=== PATIENT | female | born 1955 | race Caucasian/White ===

== ENCOUNTER 2022-09-24 10:01 | Outpatient (CLI) | payer MEDICARE, MEDICAID, SELFPAY ==
--- NOTE | 2022-09-24 11:00 | NEURO_ITS ---
Impression: # Complains of weakness of right hand. # No Carpal Tunnel Syndrome or ulnar neuropathy. # Normal needle/EMG exam including proximal muscles. # Clinical correlation recommended. Nerve Conduction Studies Anti Sensory Summary Table Stim Site NR Peak (ms) P-T Amp (?V) Site1 Site2 Delta-P (ms) Dist (cm) Earnest (m/s) Right Median Anti Sensory (2-3nd Digit) Wrist 2.7 22.7 Wrist 2-3nd Digit 2.7 14.0 52 Wrist 2.8 33.9 Wrist 2-3nd Digit 2.7 14.0 52 Right Radial Anti Sensory (Base 1st Digit) Wrist 2.3 20.9 Wrist Base 1st Digit 2.3 0.0 Right Ulnar Anti Sensory (5th Digit) Wrist 2.5 43.8 Wrist 5th Digit 2.5 14.0 56 Motor Summary Table Stim Site NR Onset (ms) O-P Amp (mV) Site1 Site2 Delta-0 (ms) Dist (cm) Earnest (m/s) Right Median Motor (Abd Poll Brev) Wrist 2.6 4.1 Elbow Wrist 4.3 26.0 60 Elbow 6.9 2.7 Right Ulnar Motor (Abd Dig Minimi) Wrist 2.4 6.9 A Elbow Wrist 4.4 27.0 61 A Elbow 6.8 5.6 F Wave Studies NR F-Lat (ms) L-R F-Lat (ms) Right Median (Mrkrs) (Abd Poll Brev) 25.86 Right Ulnar (Mrkrs) (Abd Dig Min) 25.63 EMG Side Muscle Nerve Root Ins Act Fibs Amp Dur Recrt Comment Right 1stDorInt Ulnar C8-T1 Nml Nml Nml Nml Nml Right Ext Indicis Radial (Post Int) C7-8 Nml Nml Nml Nml Nml Right Ext Digitorum Radial (Post Int) C7-8 Nml Nml Nml Nml Nml Right BrachioRad Radial C5-6 Nml Nml Nml Nml Nml Right PronatorTeres Median C6-7 Nml Nml Nml Nml Nml Right Abd Poll Brev Median C8-T1 Nml Nml Nml Nml Nml MTDD
== END 2022-09-24 10:02 | disposition home or self-care (01) ==
LOC: ANHNEURO 10:04
DX: R29.898 Other symptoms and signs involving the musculoskeletal system (principal)
CPT/HCPCS: 95886; 95909

== ENCOUNTER 2023-03-25 04:48 | Inpatient (IN) | payer MEDICARE, MEDICAID, SELFPAY ==
[2023-03-25] VITALS (10 sets, daily range): BP systolic 124–167; BP diastolic 59–73; PULSE 52–85; RESP 16–23; TEMP 36.3–36.6; O2SAT 98–100; BMI 24.5
--- NOTE | ~2023-03-25 | XR_ITS ---
XR chest 1V portable DATE: 03/25/2023 08:06 INDICATION: Palpitations. Epigastric abdominal pain. Nausea and vomiting. History of emphysema. TECHNIQUE: Portable upright AP chest on 03/25/2023 at 0802 hours COMPARISON: None FINDINGS: Normal heart size. There is aortic arch calcification, mild aortic unfolding. No hilar or m ediastinal enlargement. No pulmonary infiltrate or consolidation, pleural effusion or pulmonary vascular congestion or pneumo thorax is detected. Diffuse osteopenia. Surgical clips appearing present in the right upper quadrant, likely due to cholecystectomy. Diffuse osteopenia. There appears to be some surgical hardware at the minimally included lower cervical spine. There is d egenerative spurring and mild dextroscoliosis of the thoracic spine. IMPRESSION: No active cardiopulmonary disease Aortic atherosclerosis Reviewed, dictated and finalized at location L. S OFFICE MANAGER
--- NOTE | ~2023-03-25 | CT_ITS ---
CT of the Abdomen and Pelvis: Indication: Abdominal pain Technique: 2.5 mm axial scans were obtained through the abdomen and pelvis following intravenous adm inistration of 100 cc of Omnipaque 350. Dose reduction technique was used on this scan by utilizing a utomated exposure control and iterative reconstruction technique. The dose-length product (DLP) was 4 93.20 mGy-cm. Findings: Scans through the lung bases are unremarkable. The liver, spleen, pancreas, adrenals and kidneys are within normal limits. Cholecystectomy clips are present. There are atherosclerotic calcifications of the aorta. No lymphadenopathy. No bowel obstruction or bowel wall thickening. There is no evidence to suggest acute appendicitis. Ev idence of prior bariatric surgery noted. There is a small right-sided ventral fat-containing hernia, possibly at site of prior port placement. Images through the pelvis were performed. Urinary bladder unremarkable. No adnexal mass seen. No asci adriana. Impression: Small right-sided ventral fat-containing hernia, likely at the site of prior port placement. No acute abnormality seen. Reviewed, dictated and finalized at location . 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 No acute abnormality seen.
--- NOTE | 2023-03-25 04:49 | ECG_ITS ---
Measurements Intervals [place] Rate: 67 P: 5 [place]: 150 QRS: 46 QRSD: 86 T: 58 QT: 383 QTc: 406 Interpretive Statements SINUS OR ECTOPIC ATRIAL RHYTHM BORDERLINE ECG NO PREVIOUS ECG AVAILABLE FOR COMPARISON Electronically Signed On 03-25-2023 6:20:41 MARKETING AUTOMATION ANALYST by Pankaj Connell D.O.
[2023-03-25 06:06] LABS: Basophils Percent Auto 0.2 % (0.2-1.2); Eosinophils Absolute Auto 0.2 K/mm3 (0-0.3); Eosinophils Percent Auto 2.1 % (0-4.4); Hematocrit 41.4 % (37.0-47.0); Hemoglobin 13.1 g/dL (12.0-15.0); Immature Granulocyte Absolute 0.11 K/mm3 (0.00-0.031); Immature Platelet Fraction Pct 6.3 % (0.9-11.2); Lymphocytes Absolute Auto 3.07 K/mm3 (0.9-3.2); Lymphocytes Percent Auto 29.1 % (18.3-44.2); Mean Corpuscular HGB Conc 31.6 g/dl (32-36); Mean Corpuscular Hemoglobin 30.8 pg (26-34); Mean Corpuscular Volume 97.2 fl (80-100); Monocytes Absolute Auto 0.9 K/mm3 (0.1-0.6); Monocytes Percent Auto 8.4 % (2.6-8.5); Neutrophils Absolute Auto 6.3 K/mm3 (1.3-6.7); Neutrophils Percent Auto 59.2 % (45.5-73.1); Platelet Count Result 241 k/mm3 (150-375); Red Blood Count 4.26 M/mm3 (4.2-5.4); Red Cell Distribution Width 12.2 % (11.5-14.5); White Blood Count 10.6 K/mm3 (4.5-10.0)
[2023-03-25 06:16] LABS: Alanine Aminotransferase 83 U/L (6-35); Albumin Level 3.9 g/dL (3.5-5.1); Alkaline Phosphatase 73 U/L (38-126); Anion Gap 8 mmol/L (8-16); Aspartate Amino Transferase 51 U/L (14-36); Bilirubin,Total 0.7 mg/dL (0.2-1.3); Blood Urea Nitrogen 21 mg/dL (7-17); Calcium 8.7 mg/dL (8.4-10.2); Carbon Dioxide 23 mmol/L (22-30); Chloride 107 mmol/L (98-107); Estimated CRCL calculation 49 ml/min; Estimated Glomerular Filt Rate > 60; Glucose 83 mg/dL (65-110); Lipase 174 U/L (23-300); Potassium 3.5 mmol/L (3.4-5.0); Sodium 138 mmol/L (137-145)
[2023-03-25 06:19] LABS: Appearance Urine Clear (Clear); Bacteria Urine None Seen /hpf; Bilirubin Urine Negative (Negative); Blood Urine Negative (Negative); Color Urine Yellow (Yellow); Glucose Urine UA Negative (Negative); Ketones Urine Negative (Negative); Leukocyte Esterase Ur Trace LEU/UL (Negative); Nitrate Urine Negative (Negative); Non Pathogenic Casts 0-2; Protein Urine Negative (Negative); RBC Urine 0-2 /hpf (0-2); Specific Grav Ur 1.016 (1.001-1.035); Squamous Epithelial Cell Urine None seen /hpf (Few); WBC Urine 0-5 /hpf; pH Urine 6.5 (5.0-9.0)
[2023-03-25 06:27] LABS: Add Urine Microscopic? YES
[2023-03-25 06:28] LABS: Troponin I < 0.012 ng/mL (0.000-0.034)
[2023-03-25] MEDS: MORPHINE SULFATE (*CRX) 2 MG/ML INJ IV PUSH ×3 (06:46→20:30)
[2023-03-25] MEDS: SODIUM CHLORIDE 0.9% IV 1,000 ML 999 ML IV CONT ×2 (06:47→08:01)
[2023-03-25] MEDS: ONDANSETRON INJ 4 MG/2 ML VIAL IV PUSH ×3 (06:47→15:37)
[2023-03-25 06:51] LABS: Troponin I < 0.012 ng/mL (0.000-0.034)
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
[2023-03-25] MEDS: FAMOTIDINE 20 MG/2 ML VIAL IV PUSH ×2 (08:01→20:29)
[2023-03-25 08:12] LABS: Lactic Acid Reflex 0.8 mmol/L (0.7-2.0)
--- NOTE | 2023-03-25 10:30 | ADMGEN ---
This patient, Amira Zimmer, was admitted to Medical Room 245-. Patient/family oriented to hospital policies and general routines including ID bracelet, bed and alarms, visiting hours, pain management, procedures, bathroom and other care routines, personal items, smoking policy, room service/diet, and visiting hours. Information on how to activate the Rapid Response Team has been discussed. Patient/Family are encouraged to report perceived risks to care and to ask questions if they do not understand what they are told or what they should do.
[2023-03-25] MEDS: SODIUM CHLORIDE 0.9% IV 1,000 ML 125 ML IV CONT ×2 (10:46→18:49)
--- NOTE | 2023-03-25 12:50 | WPDGICN ---
Assessment and Plan Assessment and plan (1) Intractable nausea and vomiting: Code(s): R11.2 - Nausea with vomiting, unspecified Status: Acute Assessment and Plan: she has been unable to keep down even sips of water. This reminds her of how she felt when she had an intestinal obstruction about 5 years ago. (2) Abdominal pain: Qualifiers: Abdominal location: epigastric Qualified Code(s): R10.13 - Epigastric pain Code(s): R10.9 - Unspecified abdominal pain Status: Acute Assessment and Plan: Her pain is in the epigastric area but radiates transversely to both sides and also up into the chest. She was afraid it might be cardiac at 1st. Peptic ulcer disease is a possibility. The symptom patterns is suggestive of biliary disease. Her gallbladder however is out. (3) Transaminitis: Code(s): R74.01 - Elevation of levels of liver transaminase levels Status: Acute Assessment and Plan: Though LFTs are elevated, they are lower than they were a couple of months ago. AST was 104 in January and now 51 ALT however was 43 and has gone up to 83. Bilirubin is normal. Plan IV fluids for rehydration. Schedule for EGD tomorrow. Anti nausea, antiemetics as needed. GI Consult Note Consult date/time: 03/25/23 12:50 HPI: Amira Zimmer is a 67 year old female Admitted to the emergency room because of persistent vomiting. She states that a couple days ago she developed pain in the epigastric area which would radiate up into her chest and across the abdomen along the costal margins. She was nauseated and vomiting somewhat. Beginning yesterday it became constant, and she has been unable to keep down even sips of water. She states this remind her very much of what occurred when she had intestinal obstruction due to adhesions several years ago. She has been having bowel movements although becoming constipated lately. She denies fever. She had a gastric bypass 18 years ago. It has not give her trouble to her knowledge since then. She has had a cholecystectomy as well. Review of Systems Review of Systems: All systems reviewed & are unremarkable except as noted in HPI and below PMFSH Family History Family History Father Alzheimer disease Mother High cholesterol Mother Hypertension Mother Heart attack Sibling Lung cancer Dementia Social History Social History Smoking status: Current every day smoker Tobacco type: cigarettes Additional smoking assessment comments: smoking 6 cigarettes daily after having quit in 2010 Alcohol intake: never Substance use: never Substance use type: does not use Lack of Transportation: No Lack of Food: Never True Current Housing: I Have Housing Concerned About Future Housing: No Difficulty Paying Gas/Electric Bills: No Difficulty Paying for Meds: No Currently Unemployed: No Education: High School Diploma/GED Difficulty w/ Childcare or Family Care: No Spiritual care concerns: Yes (Cheondoism) Meds Home Medications and Allergies Home Medications Medication Instructions Recorded Confirmed Type albuterol sulfate 90 mcg/actuation 1 inh inhalation Q4-6H PRN 11/09/20 03/25/23 History breath activated powder inhaler Shortness Of Breath Or Wheezing ergocalciferol (vitamin D2) 1,250 1,250 mcg PO WEEKLY 11/09/20 03/25/23 History mcg (50,000 unit) capsule ferrous sulfate 325 mg (65 mg 325 mg PO DAILY 11/09/20 03/25/23 History iron) tablet losartan 100 mg tablet 100 mg PO DAILY 11/09/20 03/25/23 History metoprolol succinate 25 mg 25 mg PO DAILY 11/09/20 03/25/23 History tablet,extended release 24 hr multivitamin-iron 9 mg-folic acid 1 tablet PO DAILY@0800 #0 tabs 01/21/23 03/25/23 Rx 400 mcg-calcium and minerals tablet (Thera M Plus (ferrous fumarate)) poly
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
[2023-03-25] MEDS: diphenhydrAMINE HCl INJ 50 MG/ML VIAL 25 MG IV PUSH (20:29)
[2023-03-26] VITALS (9 sets, daily range): BP systolic 131–151; BP diastolic 45–96; PULSE 57–79; RESP 16–27; TEMP 36.6–36.8; O2SAT 96–100
[2023-03-26] MEDS: SODIUM CHLORIDE 0.9% IV 1,000 ML 125 ML IV CONT ×3 (02:28→20:14)
[2023-03-26] MEDS: diphenhydrAMINE HCl INJ 50 MG/ML VIAL 25 MG IV PUSH ×2 (02:32→23:15)
[2023-03-26] MEDS: MORPHINE SULFATE (*CRX) 2 MG/ML INJ IV PUSH (03:44)
[2023-03-26 06:24] LABS: Basophils Percent Auto 0.1 % (0.2-1.2); Eosinophils Absolute Auto 0.2 K/mm3 (0-0.3); Eosinophils Percent Auto 1.6 % (0-4.4); Hematocrit 37.3 % (37.0-47.0); Hemoglobin 11.9 g/dL (12.0-15.0); Immature Granulocyte Absolute 0.07 K/mm3 (0.00-0.031); Immature Granulocyte Percent A 0.7 % (0-0.5); Lymphocytes Absolute Auto 2.23 K/mm3 (0.9-3.2); Lymphocytes Percent Auto 22.6 % (18.3-44.2); Mean Corpuscular HGB Conc 31.9 g/dl (32-36); Mean Corpuscular Hemoglobin 31.2 pg (26-34); Mean Corpuscular Volume 97.9 fl (80-100); Mean Platelet Volume 9.7 fl (7.4-10.4); Monocytes Absolute Auto 0.7 K/mm3 (0.1-0.6); Monocytes Percent Auto 6.8 % (2.6-8.5); Neutrophils Absolute Auto 6.7 K/mm3 (1.3-6.7); Neutrophils Percent Auto 68.2 % (45.5-73.1); Platelet Count Result 241 k/mm3 (150-375); Red Blood Count 3.81 M/mm3 (4.2-5.4); Red Cell Distribution Width 12.5 % (11.5-14.5); White Blood Count 9.9 K/mm3 (4.5-10.0)
[2023-03-26 06:32] LABS: Alanine Aminotransferase 61 U/L (6-35); Albumin Level 3.4 g/dL (3.5-5.1); Alkaline Phosphatase 71 U/L (38-126); Anion Gap 7 mmol/L (8-16); Aspartate Amino Transferase 33 U/L (14-36); Bilirubin,Total 0.7 mg/dL (0.2-1.3); Blood Urea Nitrogen 10 mg/dL (7-17); Calcium 8.5 mg/dL (8.4-10.2); Carbon Dioxide 25 mmol/L (22-30); Chloride 106 mmol/L (98-107); Estimated CRCL calculation 57 ml/min; Estimated Glomerular Filt Rate > 60; Glucose 79 mg/dL (65-110); Sodium 138 mmol/L (137-145)
--- NOTE | 2023-03-26 08:10 | PM.IMPN ---
Progress Note: A&P Assessment and Plan (1) Abdominal pain: Qualifiers: Abdominal location: upper abdomen, unspecified Qualified Code(s): R10.10 - Upper abdominal pain, unspecified Code(s): R10.9 - Unspecified abdominal pain Status: Acute Assessment and Plan: CT abdomen/pelvis: Small right-sided ventral fat-containing hernia, likely at the site of prior port placement. CXR: No active cardiopulmonary disease w/aortic arthrosclerosis. AST 51/ALT 83, decreased AST and increased ALT from previous on 01/22/23. UA WNL, trace leuks. EKG - no ischemic pattern, sinus or ectopic atrial rhythm. GI consulted, ?PUD, EGD 03/26, IVF, antiemetics (2) Intractable nausea and vomiting: Code(s): R11.2 - Nausea with vomiting, unspecified Status: Acute Assessment and Plan: antiemetics, hold home PO medications, resume once able to tolerate PO Plan Home Meds/Chronic Conditions - HTN: hydralazine 10 mg IVP for hypertension PRN due to inability to tolerate home PO medications - emphysema/COPD: continue home inhalers - hold home PO medications, resume once able to tolerate PO GI Prophylaxis: famotidine IV Q12H DVT Prophylaxis: SCDs, Lovenox post-EGD Lines: pIV Code Status: Full Code Subjective Date/time seen: 03/26/23 08:10 Interval history: 67-year-old female with past medical history of hypertension, hyperlipidemia, gastric bypass surgery among other comorbidities is presenting with nausea, vomiting abdominal pain as well as worsening constipation. No overnight events noted. In EGD. Review of Systems Review of Systems: in egd Exam Narrative: per Gi in EGD Objective Data Vital Signs Vital Signs: Vital Signs - 24 hr 03/25/23 08:48 03/25/23 09:01 03/25/23 09:31 Temperature Pulse Rate 63 59 L 57 L Respiratory Rate 21 H 22 H 18 Blood Pressure 167/72 H 146/67 H 137/67 Pulse Oximetry 100 100 100 Oxygen Delivery Fraction of Inspired Oxygen 03/25/23 10:01 03/25/23 10:40 03/25/23 13:51 Temperature Pulse Rate 60 Respiratory Rate 23 H 20 Blood Pressure 136/63 Pulse Oximetry 100 100 100 Oxygen Delivery Room Air Autopap Fraction of Inspired Oxygen 03/25/23 14:54 03/25/23 20:15 03/25/23 20:35 Temperature 97.9 F 97.4 F L Pulse Rate 58 L 52 L Respiratory Rate 16 17 Blood Pressure 148/60 H 142/59 H Pulse Oximetry 98 100 Oxygen Delivery Room Air Fraction of Inspired Oxygen 03/26/23 05:31 03/26/23 07:51 Temperature 98.0 F Pulse Rate 58 L Respiratory Rate 17 18 Blood Pressure 143/53 H Pulse Oximetry 100 100 Oxygen Delivery Room Air Fraction of Inspired Oxygen Intake/Output Intake/Output: Intake & Output 03/23/23 03/24/23 03/25/23 03/26/23 23:59 23:59 23:59 23:59 Intake Total 3000 1000 Output Total 1920 1500 Balance 1080 -500 Meds/Results Medications: Active Medications Generic Name Dose Route Start Last Admin Trade Name Freq PRN Reason Stop Dose Admin Acetaminophen 650 mg 03/25/23 15:15 Acetaminophen 325 Mg Tablet PO Q6H PRN Mild Pain (1-3) or Fever Albuterol 1 puff 03/25/23 15:26 Albuterol Sulfate (*Sp) Aerosol 1 Puff INHALATION Q4-6H PRN Shortness Of Breath Or Wheezing Diphenhydramine HCl 25 mg 03/25/23 15:15 03/26/23 02:32 Diphenhydramine Hcl Inj 50 Mg/Ml Vial IV PUSH 25 mg Q4H PRN Administration Nausea And Vomiting Famotidine 20 mg 03/25/23 21:00 03/25/23 20:29 Famotidine 20 Mg/2 Ml Vial IV PUSH 20 mg Q12HR DELMY Administration Hydralazine HCl 10 mg 03/25/23 15:22 Hydralazine Hcl 20 Mg/Ml Vial IV PUSH ONCE PRN Hypertension Sodium Chloride 1,000 mls @ 125 mls/hr 03/25/23 09:40 03/26/23 02:28 Normal Saline Iv IV CONT 125 mls/hr .Q8H DELMY Administration Morphine Sulfate 2 mg 03/25/23 15:15 03/26/23 03:44 Morphine Sulfate (*Crx) 2 Mg/Ml Inj IV PUSH 2 mg Q4H PRN Administration
[2023-03-26] MEDS: UMECLIDINIUM/VILANTEROL 62.5-25 MCG ELLIPTA 1 PUFF INHALATION (08:28)
[2023-03-26] MEDS: FAMOTIDINE 20 MG/2 ML VIAL IV PUSH (09:05)
--- NOTE | 2023-03-26 10:49 | PC.NURSE ---
To GI Lab via wheelchair. Family at bedside. Voiding without difficulty.
[2023-03-26] MEDS: LACTATED RINGERS 1,000 ML 150 ML IV CONT (11:03)
--- NOTE | 2023-03-26 11:22 | WPDANESEPPF ---
Anes - Initial Pre Proc Eval Procedure: Operation Date: 03/26/23 15:00 Proposed Procedures p Esophagogastroduodenoscopy - Dani Kothari MD Date/Time: 03/26/23 11:22 Surgeon: Hailey Rausch MD Pre Op Diagnosis: Abdominal Pain w Intractabel Nausea and Vomiting Patient Data Age: 67 Gender: F Height: 1.55 m Weight: 58.8 kg Last Vital Signs Temp 97.8 F 03/26/23 11:00 Pulse 66 03/26/23 11:00 Resp 16 03/26/23 11:00 BP 151/96 H 03/26/23 11:00 Pulse Ox 97 03/26/23 11:00 O2 Del Method Room Air 03/26/23 11:00 FiO2 21 03/25/23 13:51 Allergies Allergy/AdvReac Type Severity Reaction Status Date / Time No Known Allergies Allergy Verified 03/26/23 10:58 Home Medications Medication Instructions Recorded Confirmed Type albuterol sulfate 90 mcg/actuation 1 inh inhalation Q4-6H PRN 11/09/20 03/25/23 History breath activated powder inhaler Shortness Of Breath Or Wheezing ergocalciferol (vitamin D2) 1,250 1,250 mcg PO WEEKLY 11/09/20 03/25/23 History mcg (50,000 unit) capsule ferrous sulfate 325 mg (65 mg 325 mg PO DAILY 11/09/20 03/25/23 History iron) tablet losartan 100 mg tablet 100 mg PO DAILY 11/09/20 03/25/23 History metoprolol succinate 25 mg 25 mg PO DAILY 11/09/20 03/25/23 History tablet,extended release 24 hr multivitamin-iron 9 mg-folic acid 1 tablet PO DAILY@0800 #0 tabs 01/21/23 03/25/23 Rx 400 mcg-calcium and minerals tablet (Thera M Plus (ferrous fumarate)) polyethylene glycol 3350 17 gram 17 g PO BID PRN constipation #20 ea 01/21/23 03/25/23 Rx oral powder packet (Miralax) cyclobenzaprine 10 mg tablet 10 mg PO TID PRN Spasms 03/25/23 03/25/23 History gabapentin 300 mg capsule 600 mg PO TID 03/25/23 03/25/23 History (Neurontin) hydrocodone 5 mg-acetaminophen 325 1 tablet PO TID PRN pain 03/25/23 03/25/23 History mg tablet mirtazapine 15 mg tablet 15 mg PO HS 03/25/23 03/25/23 History simvastatin 40 mg tablet 40 mg PO DAILY 03/25/23 03/25/23 History umeclidinium 62.5 mcg-vilanterol 1 inh inhalation DAILY 03/25/23 03/25/23 History 25 mcg/actuation powdr for inhalation (Anoro Ellipta) Laboratory Tests 03/26/23 06:05 WBC 9.9 K/mm3 (4.5-10.0) RBC 3.81 L M/mm3 (4.2-5.4) Hgb 11.9 L g/dL (12.0-15.0) Hct 37.3 % (37.0-47.0) MCV 97.9 fl (80-100) MCH 31.2 pg (26-34) MCHC 31.9 L g/dl (32-36) RDW 12.5 % (11.5-14.5) Plt Count 241 k/mm3 (150-375) MPV 9.7 fl (7.4-10.4) Immature Gran % (Auto) 0.7 H % (0-0.5) Neut % (Auto) 68.2 % (45.5-73.1) Lymph % (Auto) 22.6 % (18.3-44.2) [place] % (Auto) 6.8 % (2.6-8.5) Eos % (Auto) 1.6 % (0-4.4) Baso % (Auto) 0.1 L % (0.2-1.2) Lymph # (Auto) 2.23 K/mm3 (0.9-3.2) [place] # (Auto) 0.7 H K/mm3 (0.1-0.6) Eos # (Auto) 0.2 K/mm3 (0-0.3) Baso # (Auto) 0.0 K/mm3 (0.0-0.1) Abs Immat Gran (auto) 0.07 H K/mm3 (0.00-0.031) Absolute Neuts (auto) 6.7 K/mm3 (1.3-6.7) Absolute Nucleated RBC 0.0 K/mm3 (0.0-0.012) Nucleated RBC % 0.0 % (0.0-0.2) Sodium 138 mmol/L (137-145) Potassium 4.0 mmol/L (3.4-5.0) Chloride 106 mmol/L (98-107) Carbon Dioxide 25 mmol/L (22-30) Anion Gap 7 L mmol/L (8-16) BUN 10 D mg/dL (7-17) Creatinine 0.60 L mg/dL (0.7-1.0) Estim Creat Clear Calc 57 ml/min Estimated GFR > 60 (59 - ) Glucose 79 mg/dL (65-110) Calcium 8.5 mg/dL (8.4-10.2) Total Bilirubin 0.7 mg/dL (0.2-1.3) AST 33 U/L (14-36) ALT 61 H U/L (6-35) Alkaline Phosphatase 71 U/L (38-126) Total Protein 6.0 L g/dL (6.3-8.2) Albumin 3.4 L g/dL (3.5-5.1) Patient hx anesthesia problems: none Family hx anesthesia problems: none Results Review: All pre-operative results and documents have been reviewed as part of the pre-operative evaluation. [facility] Past Medical History Medical History (Upda
[2023-03-26] MEDS: SIMETHICONE ORAL SUSPENSION 20 MG/0.3 ML 30 ML BOTTLE 0.6 ML PO (11:53)
--- NOTE | 2023-03-26 12:30 | PC.NURSE ---
Returned from GI lab via stretcher. Voiding without difficulty.
[2023-03-26] MEDS: oxyCODONE HCL (*CRX) 2.5 MG TAB IR PO ×2 (16:45→20:15)
[2023-03-26] MEDS: PANTOPRAZOLE SODIUM IV 40 MG VIAL IV PUSH (20:12)
[2023-03-27] MEDS: MORPHINE SULFATE (*CRX) 2 MG/ML INJ IV PUSH (01:39)
[2023-03-27] MEDS: SODIUM CHLORIDE 0.9% IV 1,000 ML 125 ML IV CONT (04:04)
[2023-03-27 06:00] VITALS: BP 154/62; PULSE 63; RESP 18; TEMP 36.6; O2SAT 100
[2023-03-27 06:06] LABS: Basophils Percent Auto 0.1 % (0.2-1.2); Eosinophils Absolute Auto 0.2 K/mm3 (0-0.3); Eosinophils Percent Auto 2.5 % (0-4.4); Hemoglobin 11.3 g/dL (12.0-15.0); Immature Granulocyte Absolute 0.04 K/mm3 (0.00-0.031); Immature Granulocyte Percent A 0.6 % (0-0.5); Lymphocytes Absolute Auto 1.67 K/mm3 (0.9-3.2); Lymphocytes Percent Auto 23.4 % (18.3-44.2); Mean Corpuscular HGB Conc 31.4 g/dl (32-36); Mean Corpuscular Hemoglobin 30.9 pg (26-34); Mean Corpuscular Volume 98.4 fl (80-100); Mean Platelet Volume 10.1 fl (7.4-10.4); Monocytes Absolute Auto 0.6 K/mm3 (0.1-0.6); Monocytes Percent Auto 8.7 % (2.6-8.5); Neutrophils Absolute Auto 4.6 K/mm3 (1.3-6.7); Neutrophils Percent Auto 64.7 % (45.5-73.1); Platelet Count Result 209 k/mm3 (150-375); Red Blood Count 3.66 M/mm3 (4.2-5.4); Red Cell Distribution Width 12.3 % (11.5-14.5); White Blood Count 7.1 K/mm3 (4.5-10.0)
[2023-03-27 06:19] LABS: Alanine Aminotransferase 46 U/L (6-35); Albumin Level 3.2 g/dL (3.5-5.1); Alkaline Phosphatase 66 U/L (38-126); Anion Gap 8 mmol/L (8-16); Aspartate Amino Transferase 27 U/L (14-36); Bilirubin,Total 0.6 mg/dL (0.2-1.3); Blood Urea Nitrogen 6 mg/dL (7-17); Calcium 8.4 mg/dL (8.4-10.2); Carbon Dioxide 24 mmol/L (22-30); Chloride 108 mmol/L (98-107); Estimated CRCL calculation 67 ml/min; Estimated Glomerular Filt Rate > 60; Glucose 87 mg/dL (65-110); Potassium 3.4 mmol/L (3.4-5.0); Sodium 140 mmol/L (137-145)
--- NOTE | 2023-03-27 06:55 | WPDGIPROGNO ---
Progress Note: A&P Assessment and Plan (1) Intractable nausea and vomiting: Code(s): R11.2 - Nausea with vomiting, unspecified Status: Acute Assessment and Plan: she has been unable to keep down even sips of water. This reminds her of how she felt when she had an intestinal obstruction about 5 years ago. EGD revealed ulcers. She is feeling better and wants to try regular food with the hope of going home today. (2) Abdominal pain: Qualifiers: Abdominal location: upper abdomen, unspecified Qualified Code(s): R10.10 - Upper abdominal pain, unspecified Code(s): R10.9 - Unspecified abdominal pain Status: Acute Assessment and Plan: Her pain is in the epigastric area but radiates transversely to both sides and also up into the chest. She was afraid it might be cardiac at 1st. Peptic ulcer disease is a possibility. The symptom patterns is suggestive of biliary disease. Her gallbladder however is out. EGD in fact did reveal several small ulcers. H pylori was negative. We have started her on pantoprazole when she is feeling better already. (3) Transaminitis: Code(s): R74.01 - Elevation of levels of liver transaminase levels Status: Acute Assessment and Plan: Though LFTs are elevated, they are lower than they were a couple of months ago. AST was 104 in January and now 51 ALT however was 43 and has gone up to 83. Bilirubin is normal. Plan Try regular diet. Consider discharge today, on PPI once daily for 6 weeks. Subjective Date/time seen: 03/27/23 06:55 Feeling much better. She is willing to try regular diet. If she tolerates that she could be discharged today. Exam Const: General: cooperative and ill appearing Orientation/consciousness: patient oriented x3 HENMT: Head: normal to inspection Ears: hearing grossly normal bilaterally Mouth: Yes Normal oral and palatal mucosa present Eyes: General: appearance normal, both eyes and all related structures Neck: Neck: normal visual inspection Chest: Chest palpation & inspection: normal inspection of the chest Resp: Effort & Inspection: normal respiratory effort Auscultation: clear to auscultation bilaterally Cardio: Rate: regular rate Rhythm: regular rhythm GI: Inspection: normal to inspection Auscultation: normal bowel sounds Skin: General skin exam: normal color and no jaundice Neuro: General: patient oriented x3 Speech: normal speech Objective Data Vital Signs Vital Signs: Vital Signs - 24 hr 03/26/23 07:51 03/26/23 11:00 03/26/23 12:00 Temperature 36.6 C Pulse Rate 66 74 Respiratory Rate 18 16 20 Blood Pressure 151/96 H 151/62 H Pulse Oximetry 100 97 100 Oxygen Delivery Room Air Room Air Room Air 03/26/23 12:10 03/26/23 12:20 03/26/23 12:45 Temperature 36.6 C Pulse Rate 65 60 60 Respiratory Rate 25 H 27 H 16 Blood Pressure 146/57 H 142/77 H 141/50 H Pulse Oximetry 99 100 98 Oxygen Delivery Room Air Room Air 03/26/23 14:00 03/26/23 20:04 03/26/23 20:30 Temperature 36.8 C 36.6 C Pulse Rate 79 57 L Respiratory Rate 16 18 Blood Pressure 131/53 L 147/45 H Pulse Oximetry 100 96 Oxygen Delivery Room Air 03/27/23 06:00 Temperature 36.6 C Pulse Rate 63 Respiratory Rate 18 Blood Pressure 154/62 H Pulse Oximetry 100 Oxygen Delivery Intake/Output Intake/Output: Intake & Output 03/24/23 03/25/23 03/26/23 03/27/23 23:59 23:59 23:59 23:59 Intake Total 3000 4570 1000 Output Total 1920 2900 550 Balance 1080 1670 450 Meds/Results Medications: Active Medications Generic Name Dose Route Start Last Admin Trade Name Freq PRN Reason Stop Dose Admin Acetaminophen 650 mg 03/25/23 15:15 Acetaminophen 325 Mg Tablet PO Q6H PRN Mild Pain (1-3) or Fever Albuterol 1 puff 03/25/23 15:26 Albuterol Sulfate (*Sp) Aerosol 1 Puff INHALATION Q4-6H PRN Shortness Of Breath Or Wheezing Diphenhydramine HCl
[2023-03-27 07:10] VITALS: PULSE 76; RESP 18; O2SAT 97
[2023-03-27 08:03] VITALS: RESP 18; O2SAT 97
[2023-03-27] MEDS: PANTOPRAZOLE SODIUM IV 40 MG VIAL IV PUSH (08:10)
--- NOTE | 2023-03-27 11:09 | P.PNAN_ITS ---
Anes - Prog Note Post-Op Date/Time: 03/27/23 11:09 Cardiovascular status: normal Respiratory status: normal Airway patency: baseline Mental status: baseline Post-Op hydration status: normal Vital Signs: Last Vital Signs Temp 36.6 C 03/27/23 06:00 Pulse 76 03/27/23 07:10 Resp 18 03/27/23 08:03 BP 154/62 H 03/27/23 06:00 Pulse Ox 97 03/27/23 08:03 O2 Del Method Room Air 03/27/23 08:03 FiO2 21 03/25/23 13:51 Pain Score (VAS): 05/21 I/O: Intake & Output 03/26/23 03/27/23 03/27/23 23:59 07:59 15:59 Intake Total 2230 1000 120 Output Total 1400 550 Balance 830 450 120 Laboratory Tests 03/27/23 05:55 03/27/23 05:55 03/27/23 05:55 WBC 7.1 RBC 3.66 L Hgb 11.3 L Hct 36.0 L MCV 98.4 MCH 30.9 MCHC 31.4 L RDW 12.3 Plt Count 209 MPV 10.1 Immature Gran % (Auto) 0.6 H Neut % (Auto) 64.7 Lymph % (Auto) 23.4 [place] % (Auto) 8.7 H Eos % (Auto) 2.5 Baso % (Auto) 0.1 L Lymph # (Auto) 1.67 [place] # (Auto) 0.6 Eos # (Auto) 0.2 Baso # (Auto) 0.0 Abs Immat Gran (auto) 0.04 H Absolute Neuts (auto) 4.6 Absolute Nucleated RBC 0.0 Nucleated RBC % 0.0 Sodium 140 Potassium 3.4 Chloride 108 H Carbon Dioxide 24 Anion Gap 8 BUN 6 L Creatinine 0.50 L Estim Creat Clear Calc 67 Estimated GFR > 60 Glucose 87 Calcium 8.4 Total Bilirubin 0.6 AST 27 ALT 46 H Alkaline Phosphatase 66 Total Protein 5.0 L Albumin 3.2 L Post-procedural complaints: none Patient Feedback: Patient satisfied with anesthetic care.
--- NOTE | 2023-03-27 13:16 | PM.DS ---
DS: Admitting Diagnosis Discharge Date 03/27/23 Admitting Diagnosis abdominal pain DS: Discharge Diagnosis Discharge Diagnosis (1) Abdominal pain: Qualifiers: Abdominal location: upper abdomen, unspecified Qualified Code(s): R10.10 - Upper abdominal pain, unspecified Code(s): R10.9 - Unspecified abdominal pain Status: Acute Assessment and Plan: CT abdomen/pelvis: Small right-sided ventral fat-containing hernia, likely at the site of prior port placement. CXR: No active cardiopulmonary disease w/aortic arthrosclerosis. AST 51/ALT 83, decreased AST and increased ALT from previous on 01/22/23. UA WNL, trace leuks. EKG - no ischemic pattern, sinus or ectopic atrial rhythm. GI consulted, ?PUD, EGD 03/26, IVF, antiemetics (2) Intractable nausea and vomiting: Code(s): R11.2 - Nausea with vomiting, unspecified Status: Acute Assessment and Plan: antiemetics, hold home PO medications, resume once able to tolerate PO Plan Home Meds/Chronic Conditions - HTN: hydralazine 10 mg IVP for hypertension PRN due to inability to tolerate home PO medications - emphysema/COPD: continue home inhalers - hold home PO medications, resume once able to tolerate PO GI Prophylaxis: famotidine IV Q12H DVT Prophylaxis: SCDs, Lovenox post-EGD Lines: pIV Code Status: Full Code DS: Summary Hospital Course Hospital Course: 67 y/o F presents here with abdominal pain, N/V, and acute on chronic constipation with PMH of HTN, HLD, DJD, HARRIS, with extensive GI/spinal surgery history including a gastric bypass. GI was consulted and recommended EGD. EGD showed several ulcers, biopsies were taken and are pending. Recommended to take a PPI twice daily and avoid aspirin/NSAIDs. Please see above and med rec for details. All symptoms resolved patient was discharged in stable condition with close outpatient follow-up. Time Spent with Patient Time attestation: Total time spent providing and/or coordinating discharge services: DS: Data Data Completed and Pending Labs on day of discharge: Labs from last 24 hours 03/27/23 05:55 WBC 7.1 RBC 3.66 L Hgb 11.3 L Hct 36.0 L MCV 98.4 MCH 30.9 MCHC 31.4 L RDW 12.3 Plt Count 209 MPV 10.1 Immature Gran % (Auto) 0.6 H Neut % (Auto) 64.7 Lymph % (Auto) 23.4 [place] % (Auto) 8.7 H Eos % (Auto) 2.5 Baso % (Auto) 0.1 L Lymph # (Auto) 1.67 [place] # (Auto) 0.6 Eos # (Auto) 0.2 Baso # (Auto) 0.0 Abs Immat Gran (auto) 0.04 H Absolute Neuts (auto) 4.6 Absolute Nucleated RBC 0.0 Nucleated RBC % 0.0 Sodium 140 Potassium 3.4 Chloride 108 H Carbon Dioxide 24 Anion Gap 8 BUN 6 L Creatinine 0.50 L Estim Creat Clear Calc 67 Estimated GFR > 60 Glucose 87 Calcium 8.4 Total Bilirubin 0.6 AST 27 ALT 46 H Alkaline Phosphatase 66 Total Protein 5.0 L Albumin 3.2 L Discharge Plan Discharge Attending physician on discharge: Zabrina Hall Consulting providers: Dani Kothari Discharging Clinician: Zabrina Hall Patient Disposition: Home, Self-Care Activity: as tolerated Diet: as tolerated Discharge Instructions: Avoid aspirin and buprofen/motrin Patient Instructions: Antibiotic Form, How to Stop Smoking (GEN) Stand Alone Forms: General Discharge Information Follow-up/Referrals: Dani Kothari MD [Physician] - Antonio,Jenny Benavides MD [Primary Care Provider] - Discharge Medications: New pantoprazole [Protonix] 40 mg tablet,delayed release (DR/EC) 40 mg PO BID 30 Days Qty: 60 0RF Continued albuterol sulfate 90 mcg/actuation aerosol powdr breath activated 1 inh inhalation Q4-6H PRN (Reason: Shortness Of Breath Or Wheezing) ergocalciferol (vitamin D2) 1,250 mcg (50,000 unit) capsule 1,250 mcg PO WEEKLY Rx Instructions: weekly on Friday ferrous sulfate 325 mg (65 mg iron) tablet 325 mg PO DAILY losartan 100 mg tablet 100 mg PO DAILY
== END 2023-03-27 13:19 | disposition home or self-care (01) | DRG 395 ==
LOC: ANHED 09:38 → ANH2MED 10:28
PROVIDERS: Emergency Medicine; Internal Medicine Gastroenterology; Student in an Organized Health Care Education/Training Program; Admitting Provider Family Medicine; Emergency Provider Student in an Organized Health Care Education/Training Program; PCP Internal Medicine Gastroenterology; Visit Provider Student in an Organized Health Care Education/Training Program
PROC: 0DJ08ZZ Inspection of Upper Intestinal Tract, Via Natural or Artificial Opening Endoscopic (ICD-10-PCS; CPT 43235; principal; 2023-03-26 15:00)
DX: K43.9 Ventral hernia without obstruction or gangrene (principal); J43.9 Emphysema, unspecified; R10.9 Unspecified abdominal pain; K21.9 Gastro-esophageal reflux disease without esophagitis; E78.5 Hyperlipidemia, unspecified; F17.210 Nicotine dependence, cigarettes, uncomplicated; G62.9 Polyneuropathy, unspecified; I10 Essential (primary) hypertension; K59.09 Other constipation; Z98.1 Arthrodesis status; Z98.84 Bariatric surgery status; Z90.710 Acquired absence of both cervix and uterus
CPT/HCPCS: 36415; 71045; 74177; 80053; 81001; 83605; 83690; 84484; 85025; 85055; 87081; 93005; 94640; 96361; 96374; 96375; 96376; 99285; A9270; C9113; G0378; J1200; J2270; J2405; J2704; J7030; J7120; Q9967

== ENCOUNTER 2023-07-01 01:06 | Day surgery (SDC) | payer MEDICARE, MEDICAID, SELFPAY ==
[2023-06-03 15:16] VITALS: BMI 24.7
--- NOTE | 2023-06-27 11:33 | SUR.PREOP ---
Patient called regarding upcoming procedure. Voicemail left regarding appointment times.
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
[2023-07-01 08:46] VITALS: BP 127/59; PULSE 66; TEMP 36.4; O2SAT 100
[2023-07-01] MEDS: LACTATED RINGERS 1,000 ML 150 ML IV CONT (09:01)
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
[2023-07-01] MEDS: BENZOCAINE (*SP) 60 ML SPRAY CAN (HURRICAINE) 1 SPRAY MUCOUS MEM (10:07)
[2023-07-01 10:19] VITALS: BP 72/35; PULSE 61; RESP 16; O2SAT 100
[2023-07-01 10:29] VITALS: BP 82/37; PULSE 69; RESP 21; O2SAT 100
[2023-07-01 10:36] VITALS: BP 84/40; PULSE 69; RESP 25; O2SAT 100
[2023-07-01 10:46] VITALS: BP 111/54; PULSE 61; RESP 21; O2SAT 100
== END 2023-07-01 10:54 | disposition home or self-care (01) ==
PROVIDERS: PCP Internal Medicine Gastroenterology; Visit Provider Internal Medicine Gastroenterology
PROC: 0DJ08ZZ Inspection of Upper Intestinal Tract, Via Natural or Artificial Opening Endoscopic (ICD-10-PCS; CPT 43235; principal; 2023-07-01 10:00)
DX: K27.9 Peptic ulcer, site unspecified, unspecified as acute or chronic, without hemorrhage or perforation (principal); K22.2 Esophageal obstruction; K21.9 Gastro-esophageal reflux disease without esophagitis; E78.5 Hyperlipidemia, unspecified; I10 Essential (primary) hypertension
CPT/HCPCS: 43249; C1726; J2704; J7120

== ENCOUNTER 2025-01-05 14:19 | Outpatient (CLI) | payer MEDICARE, SELFPAY ==
--- OUTSIDE RECORDS SUMMARY | 2007-11-09 11:12 | XMS_ITS | Continuity of Care Document ---
Author Organization [facility] Address [address] [place] [address] [place] [address] Phone Care Team Providers Care Warehousing Technician Name Role Phone Tulio Horton Unavailable Unavailable Procedures Procedure Date Visual Field Examination-Professional Ju Visual Field Examination-Technical Eye Exam, New Patient Optic Nerve Head Eval Advance Directives Directive Yes / No Effective Date File Name No Information Encounters Encounter Description Practice Location Reason(s) For Visit Diagnoses Date Provider Providers Copied on Encounter [facility], [address] [place] [address] [address], [place], [place], [id number], tel:[phone] SEC [facility] No Information 0200 8 Eugeneishnasrosalie Tulio. [address] [place] [address], [facility], [place]. tel:[phone] Referring Provider: Tulio strickland, [address] [place] [address], [place], [place], [facility]. tel:[phone] [facility], [address] [place] [address] [address], [place], [place], [id number], tel:[phone] [facility] No Information 3200 8 Krishnasamy Tulio. [address] [place] [address], [facility], [place]. tel:[phone] Referring Provider: Tulio strickland, [address] [place] [address], [facility]. tel:[phone] [facility], [address], [place], [place], [id number], [place] tel:[phone] [facility] [place] No Information 9200 8 Clifford Antunez. [address] [facility] [place] [address], [place], [address], [place]. tel:[phone] Family History Family Member Type Diagnosis Age At Onset No Information Payers Payer name Insurance type Covered green party ID Authoriza tion(s) Medicare [facility] [id number] Medicaid [facility] [id number] Social History Type Description Quantity Date Captured [...]
--- OUTSIDE RECORDS SUMMARY | 2024-12-15 06:42 | XMS_ITS | Continuity of Care Document ---
Author Organization [facility] Address [address] [facility] [facility] [place] [address] Phone Care Team Providers Care Enterprise Application Analyst Name Role Phone Napoleon Wick MD Unavailable Unavailable Allergies, Adverse Reactions, Alerts Substance Reaction Status Criticality No Known Allergies Active No Inform ation Medications Medication Instructions Dosage Effective Dates (start - stop) Status Comments Protonix 40 mg tablet,delayed release take 1 tablet by oral route every day 40 MG - Active Neurontin 300 mg capsule take 2 capsule by oral route 3 times every day 600 MG - Active metoprolol succinate ER 50 mg tablet,extended release 24 hr take 1 tablet by oral route every day 50 MG - Active Zocor 40 mg tablet take 1 tablet by oral route every day in the evening 40 MG - Active hydrocodone 10 mg-acetaminophen 325 mg tablet take 1 by Oral route 3 times every day as needed 1 - Active PRN for pain, avoid driving or operate machines losartan 100 mg tablet take 1 tablet by oral route every day 100 MG - Active Procedures Procedure Date PREV VISIT, , & OVER OFFICE/OUTPATIENT VISIT, NEW OFFICE/OUTPATIENT VISIT, NEW Advance Directives Directive Yes / No Effective Date File Name No Information Encounters Encounter Description Practice Location Reason(s) For Visit Diagnoses Date Provider Providers Copied on Encounter PREV VISIT, , 65 & OVER [facility], [address] [facility] [facility] [place], [place], [id number], [place] tel:[phone] [facility] Medicine physical (chief complaint) Encounter for general adult medical exam w abnormal findingsEssential (primary) hypertensionMixed hyperlipidemiaGERD w/o esophagitisChronic pain syndromeIron deficiencyAbnormal weight loss 5 Delano Bender. [address], [facility] [address], [place], [place], [id number] , . tel:[phone] Referring Provider: Staci Yousif [facility], [place], [place], [id number]. tel:[phone] OFFICE/OUTPA TIENT VISIT, [facility], [address], [place], [place], [id number], tel:[phone] [facility] HLP (chief complaint) anxiety (chief complaint) back pain (chief complaint) Dietary surveillance and counselingLumbagoOt her and unspecified hyperlipidemiaHyper tension, UnspecifiedInsomnia , Other 3 Delano Bender. [address], [facility] [address], [place], [place], [id number] , . tel:[phone] Referring Provider: Staci Yousif [address] [facility] [address], [place], [place], [id number]. tel:[phone] Family History Family Member Type Diagnosis Age At Onset Brother Problem of CAD 53, DM Sister Problem dementia Mother Problem of 79 CAD Father Problem of dementia 79 Brother Problem of alzheimer and lung C A 83 Payers Payer name Insurance type Covered democrat ID Authorcodya raeann(s) [facility] [id number] Social History Type Description Quantity Date Captured Comments Alcohol Use Details No Caffeine Use Details Unknown Tobacco Use Status Smoking Status Heavy tobacco smoker Smoking Tobacco Use Details Cigarette: Age Started: 13, Years Used 54 Cigarette: 0.5 Packs per day, Pack Year: 28 Sex Female Vital Signs Date / Time: Height Weight BMI Pulse Rate Blood Pressure Temperature Respiratory Rate Body Surface Area Head Circumference BMI percentile Pulse Ox Inhaled Ox 12:14 PM 61.00 in 111.80 lbs 21.1 2 kg/m eter (2) 63 /min 120/80 mm[Hg] 97.3 F 16 /min Chief Complaint And Reason For Visit From encounter dated '12/15/2024 11:42'. physical (chief complaint). Description: Pt needs annual physical. Pt has HLP >Pt takes zocor Pt denies any myalgia. Pt has chronic GERD Pt takes protonix and doing ok. Pt has palpitation with negative cardiac work up. Pt is on metoprolol and losartan. Pt has chronic back and neck pain withneuropathy Pt is on neurontin and norco .pt needs to establish care. her previous MD retired. pt als o has history of low b12 and low iron. Pt has lost good amount of weight since last seen 12 years ago Pt states that she has been working on diet and exercise for weight loss. Pt denies any active complaints Plan Of Treatment Date Type Action Status Goal Tobacco cessation counseling completed Referral Ordered: MAMMOGRAM, SCREENING ordered Referral Ordered: DXA BONE DENSITY, AXIAL ordered Referral Ordered: CT THORAX W/O DYE ordered Appointment Amira Zimmer BOOKED History Of Present Illness Encounter Date Complaint History Of Prese nt Illness physical Pt needs annual physical. Pt has HLP >Pt takes zocor Pt denies any myalgia. Pt has chronic GERD Pt takes protonix and doing ok. Pt has palpitation with negative cardiac work up. Pt is on metoprolol and losartan. Pt has chronic back and neck pain with neuropathy Pt is on neurontin and norco .pt needs to establish care. her previous MD retired. pt also has history of low b12 and low iron. Pt has lost good amount of weight since last seen 12 years ago Pt states that she has been working on diet and exercise for weight loss. Pt denies any active complaints Instructions Date Instruction Additional Infor mation Dietary counseling Related to Di etary surveillance counseling Decrease caloric intake Related to Dietary surveillance counseling Assessments Type Assessment Date assessment Encounter for general adult medi rekha exam w abnormal findings assessment Essential (primary) hypertension assessment Mixed hyperlipidemia assessment GERD w/o esophagitis assessment Chronic pain syndrome assessment Iron deficiency assessment Abnormal weight loss Mental Status Date Cognitive Assessment Orientation - [place] ed to time, place, person, situation.
--- NOTE | ~2025-01-05 | CT_ITS ---
EXAMINATION: CT lung screening DATE: 01/05/2025 14:51 INDICATION: Nicotine dependence TECHNIQUE: Computed tomography (CT) of the chest was performed without intravenous contrast. The dose-length product was 53.32 mGy-cm. Automated exposure control and iterative reconstruction technique were employed. COMPARISON: Chest x-ray dated 03/25/2023 FINDINGS: Heart size normal. No thoracic lymphadenopathy. No significant pleural or pericardial effusion. Status post cholecystectomy. There are calcified granulomas of the liver and spleen. There are changes of gastric bypass. There are calcified granulomas of the mediastinum and lungs, consistent with chronic granulomatous disease. There are a few small bilateral pulmonary nodules measuring 2 mm or less, likely benign. No endobronchial lesions. No pneumothorax. No significant pleural or pericardial effusion. IMPRESSION: 1. Lung-RADS category 2: Benign appearance or behavior. Continue annual screening with noncontrast low-dose chest CT in 12 months. Reviewed, dictated and finalized at location O. IMPRESSION: 1. Lung-RADS category 2: Benign appearance or behavior. Continue annual screeni ng with noncontrast low-dose chest CT in 12 months.
--- OUTSIDE RECORDS SUMMARY | 2025-01-05 14:33 | XMS_ITS | Clinical Summary ---
Author Organization [facility] Address [address] [place] [address] Care Team Providers Care Tattoo Designer Name Role Phone Jenny Alvarez MD Primary Care Provider Allergies No known active allergies Medications acetaminophen (TYLENOL) 500 mg tabletIndicati ons:Pain Take 1-2 tablets (500-1,000 mg total) by mouth every 6 (six) hours as needed for pain (1 tablet for mild to moderate pain. 2 tablets for severe pain) 30 tablet 03/11/20 22 Active losartan (COZAAR) 100 mg tablet Take 1 tablet (100 mg total) by mouth daily Active FeroSuL 325 mg (65 mg iron) tablet Take 1 tablet (325 mg total) by mouth 2 (two) times a day Active simvastatin (ZOCOR) 40 mg tablet Take 1 tablet (40 mg total) by mouth nightly Active gabapentin (NEURONTIN) 300 mg capsule Take 2 capsules (600 mg total) by mouth 3 (three) times a day Active HYDROcodone-ac etaminophen (NORCO) 10-325 mg per tablet Take 1 tablet by mouth every 4 (four) hours as needed Active mirtazapine (REMERON) 7.5 mg tablet mirtazapine 7.5 mg tablet TAKE 1 TABLET BY MOUTH EVERY DAY AT BEDTIME Active cyanocobalamin (Vitamin B-12) 1,000 mcg tablet Take 1 tablet (1,000 mcg total) by mouth 2 (two) times a day Active ergocalciferol , vitamin D2, 50 mcg (2,000 unit) tablet Take 50,000 Units by mouth once a week 11/17/19 21 Active Coreg 6.25 mg tablet Take 1 tablet (6.25 mg total) by mouth 2 (two) times a day with meals 05/26/19 25 Active rOPINIRole (REQUIP) 0.25 mg tablet TAKE 2 TABLETS PO EVERY NIGHT AT BEDTIME IF PAIN NOT CONTROLLED 60 tablet 5 12/17/19 25 Active rOPINIRole (REQUIP) 0.25 mg tablet Take one tablet one hour before bedtime for one week, then 2 tablets before bedtime if pain is not controlled. 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 Gender Identity Not on file Sexual Orientation Not on file Obstetrics History Last Filed Vital Signs Vital Sign Reading Time Taken Comments Blood Pressure 151/74 08/05/2024 10:48 AM CDT Pulse 61 08/05/2024 10:48 AM CDT Temperature 36.4 C (97.5 F) 03/11/2022 10:18 AM CDT Respiratory Rate 18 03/11/2022 10:18 AM CDT Oxygen Saturation 99% 08/05/2024 10:48 AM CDT Inhaled Oxygen Concentration - - Weight 52.6 kg (116 lb) 08/05/2024 10:48 AM CDT Height 157.5 cm (5' 2) 08/05/2024 10:48 AM CDT Body Mass Index 21.22 08/05/2024 10:48 AM CDT Plan of Treatment Health Maintenance Due Date Last Done Comments Breast Cancer Screening-Mammogram 1955 Colon Cancer Screening-Colonoscopy 1955 Depression Screening 1955 Fall Risk Assessment 1955 Hepatitis C Screening 1955 Osteoporosis Screening-Bone Density Scan 1955 Hepatitis B Screening 09/03/1971 Zoster Vaccine (1 of 2) 09/03/2003 Well Visit 65+ 2018 Covid-19 Vaccine (5 - 2023-2 5 season) 2024 01/04/2022, 04/23/2021, 08/07/2020, Additional history exists Influenza Vaccine (#1) 2025 , 03/26/2021, 03/28/2020, Additional history exists DTaP/Tdap/Td Vaccine (2 - Td or Tdap) 08/01/2031 07/31/2021 Pneumococcal vaccine 65+ Completed 022, 03/28/2020, 02/24/2015 Insurance MEDICARE [facility] MEDICARE IDPA IDPA Care Teams Tattoo Designer Relationship Specialty Start Date End Date Jenny Alvarez MD [address] [place] [id number] PCP - General Gastroenterology 04/30/24
--- OUTSIDE RECORDS SUMMARY | 2025-01-05 14:33 | XMS_ITS | Encounter Summary ---
Author Organization [employer] Address [address] [place] [address] Care Team Providers Care Can Vacuum Tester Name Role Phone Unavailable Primary Care Provider Unavailabl e Encounter Details Date Type Department Care Team (Late st Contact Info) Description 04/27/2007 Outpatient Historical HIS INPATIENT IN BED Inderjit Us MD [address] [place] [address] Hernia Social History Tobacco Use Types Packs/Day Years Used Date Smoking Tobacco: Never Assessed Comments Unknown Sex and Gender Information Value Date Recorded Sex Assigned at Not on file Legal Sex Female 5:29 AM CARD PROCESSING CLERK Gender Identity Not on file Sexual Orientation Not on file documented as of this encounter Plan of Treatment Not on file documented as of this encounter Procedures Procedure Name Priority Date/Time Associated Diagnosis Comments CBC WITH DIFFERENTIAL Routine 05/03/2007 5:30 AM CARD PROCESSING CLERK CBC WITH DIFFERENTIAL Routine 05/03/2007 5:30 AM CARD PROCESSING CLERK CBC WITH DIFFERENTIAL Routine 05/03/2007 5:30 AM CARD PROCESSING CLERK CBC WITH DIFFERENTIAL Routine 05/02/2007 7:40 AM CARD PROCESSING CLERK CBC WITH DIFFERENTIAL Routine 05/02/2007 7:40 AM CARD PROCESSING CLERK CBC WITH DIFFERENTIAL Routine 05/02/2007 5:15 AM CARD PROCESSING CLERK CBC WITH DIFFERENTIAL Routine 05/02/2007 5:15 AM CARD PROCESSING CLERK CBC WITH DIFFERENTIAL Routine 05/01/2007 6:30 AM CARD PROCESSING CLERK CBC WITH DIFFERENTIAL Routine 05/01/2007 6:30 AM CARD PROCESSING CLERK BASIC METABOLIC PANEL Routine 05/01/2007 6:30 AM CARD PROCESSING CLERK CBC WITH DIFFERENTIAL Routine 04/27/2007 12:54 PM CARD PROCESSING CLERK CBC WITH DIFFERENTIAL Routine 04/27/2007 12:54 PM CARD PROCESSING CLERK BASIC METABOLIC PANEL Routine 04/27/2007 12:54 PM CARD PROCESSING CLERK documented in this encounter Results * (ABNORMAL) CBC WITH DIFFERENTIAL (05/03/2007 5:30 AM CARD PROCESSING CLERK) Pathologist [facility] NEUTROPHIL ABSOLUTE 3.62 1.90 - 7.00 K/uL INTERFACE SYSTEM LYMPHOCYTE ABSOLUTE 1.62 0.70 - 4.50 K/uL INTERFACE SYSTEM MONOCYTE ABSOLUTE 0.05(L) 0.10 - 1.30 K/uL INTERFACE SYSTEM EOSINOPHIL ABSOLUTE 0.11 0.00 - 0.70 K/uL INTERFACE SYSTEM BASOPHILS ABSOLUTE 0.00 0.00 - 0.20 K/uL INTERFACE SYSTEM NEUTROPHILS, SEG 66 45 - 70 % INT ERFACE SYSTEM BANDS 1 0 - 5 % INTERFACE SYSTEM LYMPHOCYTES 30 16 - 45 % INTERFAC E SYSTEM MONOCYTES 1(L) 3 - 13 % INTERFACE SYSTEM EOSINOPHILS 2 0 - 7 % INTERFAC E SYSTEM BASOPHILS 0 0 - 2 % INTERFACE SYSTEM PLATELET EST. Normal Normal INTERF FRANCISCO J SYSTEM RBC MORPHOLOGY Normal Normal INTER FACE SYSTEM 05/03/2007 5:30 AM CARD PROCESSING CLERK Matty Hill MD HEMATOLOGY ORDERABLES Edit ed Performing Organization Address [facility] Phone Number INTERFACE SYSTEM Refer to clinic/hospital department * CBC WITH DIFFERENTIAL (05/03/2007 5:30 AM CARD PROCESSING CLERK) Pathologist [facility] NRBC 0 <=0 /100 WBC INTERFACE SYSTEM 05/03/2007 5:30 AM CARD PROCESSING CLERK Matty Hill MD HEMATOLOGY ORDERABLES Edit ed Performing Organization Address [facility] de Phone Number INTERFACE SYSTEM Refer to clinic/hospital department * (ABNORMAL) CBC WITH DIFFERENTIAL (05/03/2007 5:30 AM CARD PROCESSING CLERK) WBC 5.4 4.0 - 9.8 K/uL INTERFACE SYSTEM RBC 3.48(L) 3.90 - 4.90 M/uL INTERFACE SYSTEM HEMOGLOBIN 10.4(L) 11.8 - 14.8 g/dL INTERFACE SYSTEM HEMATOCRIT 31.8(L) 35.5 - 44.0 % INTERFACE SYSTEM MCV 91.4 82.0 - 99.0 fL INTERFACE SYSTEM MCH 29.9 27.2 - 32.6 pg INTERFACE SYSTEM MCHC 32.7 31.5 - 35.5 % INTERFACE SYSTEM RDW 13.5 11.5 - 14.5 % INTERFACE SYSTEM RDW-STDEV 44.5 37.1 - 48.7 fL INTERFACE SYSTEM PLATELETS 172 140 - 350 K/uL INTERFACE SYSTEM MPV 11.3 9.3 - 12.4 fL INTERFACE SYSTEM 05/03/2007 5:30 AM CARD PROCESSING CLERK Matty Hill MD HEMATOLOGY ORDERABLES Edit ed Performing Organization Address [facility] Phone Number INTERFACE SYSTEM Refer to clinic/hospital department * (ABNORMAL) CBC WITH DIFFERENTIAL (05/02/2007 7:40 AM CARD PROCESSING CLERK) NEUTROPHILS 73(H) 45 - 70 % INTERFAC E SYSTEM LYMPHOCYTES 19 16 - 45 % INTERFAC E SYSTEM MONOCYTES 5 3 - 13 % INTERFACE SYSTEM EOSINOPHILS 3 0 - 7 % INTERFAC E SYSTEM BASOPHILS 0 0 - 2 % INTERFACE SYSTEM NEUTROPHIL ABSOLUTE 4.30 1.90 - 7.00 K/uL INTERFACE SYSTEM LYMPHOCYTE ABSOLUTE 1.11 0.70 - 4.50 K/uL INTERFACE SYSTEM MONOCYTE ABSOLUTE 0.32 0.10 - 1.30 K/uL INTERFACE SYSTEM EOSINOPHIL ABSOLUTE 0.16 0.00 - 0.70 K/uL INTERFACE SYSTEM BASOPHILS ABSOLUTE 0.00 0.00 - 0.20 K/uL INTERFACE SYSTEM 05/02/2007 7:40 AM CARD PROCESSING CLERK Matty Hill MD HEMATOLOGY ORDERABLES Edit ed Performing Organization Address [facility] Phone Number INTERFACE SYSTEM Refer to clinic/hospital department * (ABNORMAL) CBC WITH DIFFERENTIAL (05/02/2007 7:40 AM CARD PROCESSING CLERK) WBC 5.9 4.0 - 9.8 K/uL INTERFACE SYSTEM RBC 2.65(L) 3.90 - 4.90 M/uL INTERFACE SYSTEM HEMOGLOBIN 8.1(L) 11.8 - 14.8 g/dL INTERFACE SYSTEM HEMATOCRIT 24.1(L) 35.5 - 44.0 % INTERFACE SYSTEM MCV 90.9 82.0 - 99.0 fL INTERFACE SYSTEM MCH 30.6 27.2 - 32.6 pg INTERFACE SYSTEM MCHC 33.6 31.5 - 35.5 % INTERFACE SYSTEM RDW 12.8 11.5 - 14.5 % INTERFACE SYSTEM RDW-STDEV 42.3 37.1 - 48.7 fL INTERFACE SYSTEM PLATELETS 171 140 - 350 K/uL INTERFACE SYSTEM MPV 10.7 9.3 - 12.4 fL INTERFACE SYSTEM 05/02/2007 7:40 AM CARD PROCESSING CLERK Matty Hill MD HEMATOLOGY ORDERABLES Edit ed Performing Organization Address [facility] Phone Number INTERFACE SYSTEM Refer to clinic/hospital department * (ABNORMAL) CBC WITH DIFFERENTIAL (05/02/2007 5:15 AM CARD PROCESSING CLERK) NEUTROPHILS 74(H) 45 - 70 % INTERFAC E SYSTEM LYMPHOCYTES 16 16 - 45 % INTERFAC E SYSTEM MONOCYTES 7 3 - 13 % INTERFACE SYSTEM EOSINOPHILS 2 0 - 7 % INTERFAC E SYSTEM BASOPHILS 0 0 - 2 % INTERFACE SYSTEM NEUTROPHIL ABSOLUTE 4.06 1.90 - 7.00 K/uL INTERFACE SYSTEM LYMPHOCYTE ABSOLUTE 0.89 0.70 - 4.50 K/uL INTERFACE SYSTEM MONOCYTE ABSOLUTE 0.37 0.10 - 1.30 K/uL INTERFACE SYSTEM EOSINOPHIL ABSOLUTE 0.13 0.00 - 0.70 K/uL INTERFACE SYSTEM BASOPHILS ABSOLUTE 0.01 0.00 - 0.20 K/uL INTERFACE SYSTEM 05/02/2007 5:15 AM CARD PROCESSING CLERK Inderjit Us MD HEMATOLOGY ORDERABLES Ed ited Performing Organization Address [facility] Phone Number INTERFACE SYSTEM Refer to clinic/hospital department * (ABNORMAL) CBC WITH DIFFERENTIAL (05/02/2007 5:15 AM CARD PROCESSING CLERK) WBC 5.5 4.0 - 9.8 K/uL INTERFACE SYSTEM RBC 2.72(L) 3.90 - 4.90 M/uL INTERFACE SYSTEM HEMOGLOBIN 8.3(L) 11.8 - 14.8 g/dL INTERFACE SYSTEM HEMATOCRIT 24.8(L) 35.5 - 44.0 % INTERFACE SYSTEM MCV 91.2 82.0 - 99.0 fL INTERFACE SYSTEM MCH 30.5 27.2 - 32.6 pg INTERFACE SYSTEM MCHC 33.5 31.5 - 35.5 % INTERFACE SYSTEM RDW 12.7 11.5 - 14.5 % INTERFACE SYSTEM RDW-STDEV 42.0 37.1 - 48.7 fL INTERFACE SYSTEM PLATELETS 200 140 - 350 K/uL INTERFACE SYSTEM MPV 11.4 9.3 - 12.4 fL INTERFACE SYSTEM 05/02/2007 5:15 AM CARD PROCESSING CLERK Inderjit Us MD HEMATOLOGY ORDERABLES Ed ited Performing Organization Address [facility] Phone Number INTERFACE SYSTEM Refer to clinic/hospital department * (ABNORMAL) CBC WITH DIFFERENTIAL (05/01/2007 6:30 AM CARD PROCESSING CLERK) [facility] NEUTROPHILS 81(H) 45 - 70 % INTERFAC E SYSTEM LYMPHOCYTES 12(L) 16 - 45 % INTERFAC E SYSTEM MONOCYTES 6 3 - 13 % INTERFACE SYSTEM EOSINOPHILS 2 0 - 7 % INTERFAC E SYSTEM BASOPHILS 0 0 - 2 % INTERFACE SYSTEM NEUTROPHIL ABSOLUTE 5.49 1.90 - 7.00 K/uL INTERFACE SYSTEM LYMPHOCYTE ABSOLUTE 0.79 0.70 - 4.50 K/uL INTERFACE SYSTEM MONOCYTE ABSOLUTE 0.37 0.10 - 1.30 K/uL INTERFACE SYSTEM EOSINOPHIL ABSOLUTE 0.11 0.00 - 0.70 K/uL INTERFACE SYSTEM BASOPHILS ABSOLUTE 0.00 0.00 - 0.20 K/uL INTERFACE SYSTEM 05/01/2007 6:30 AM CARD PROCESSING CLERK Inderjit Us MD HEMATOLOGY ORDERABLES Ed ited Performing Organization Address [facility] Phone Number INTERFACE SYSTEM Refer to clinic/hospital department * (ABNORMAL) CBC WITH DIFFERENTIAL (05/01/2007 6:30 AM CARD PROCESSING CLERK) WBC 6.8 4.0 - 9.8 K/uL INTERFACE SYSTEM RBC 3.28(L) 3.90 - 4.90 M/uL INTERFACE SYSTEM HEMOGLOBIN 10.1(L) 11.8 - 14.8 g/dL INTERFACE SYSTEM HEMATOCRIT 30.6(L) 35.5 - 44.0 % INTERFACE SYSTEM MCV 93.3 82.0 - 99.0 fL INTERFACE SYSTEM MCH 30.8 27.2 - 32.6 pg INTERFACE SYSTEM MCHC 33.0 31.5 - 35.5 % INTERFACE SYSTEM RDW 12.6 11.5 - 14.5 % INTERFACE SYSTEM RDW-STDEV 42.9 37.1 - 48.7 fL INTERFACE SYSTEM PLATELETS 191 140 - 350 K/uL INTERFACE SYSTEM MPV 10.9 9.3 - 12.4 fL INTERFACE SYSTEM 05/01/2007 6:30 AM CARD PROCESSING CLERK us Inderjit Us MD HEMATOLOGY ORDERABLES Ed ited INTERFACE SYSTEM Refer to clinic/hospital department * (ABNORMAL) BASIC METABOLIC PANEL (05/01/2007 6:30 AM CARD PROCESSING CLERK) GLUCOSE 113(H) 65 - 99 mg/dL INTERFACE SYSTEM CREATININE 0.60 0.51 - 0.95 mg/dL INTERFACE SYSTEM CALCIUM 8.3(L) 8.6 - 10.2 mg/dL INTERFACE SYSTEM BUN 10 6 - 20 mg/dL INTERFACE SYSTEM SODIUM 136 135 - 145 mmol/L INTERFACE SYSTEM POTASSIUM 4.1 3.5 - 4.9 mmol/L INTERFACE SYSTEM CHLORIDE 102 96 - 108 mmol/L INTERFACE SYSTEM CO2 27 22 - 30 mmol/L INTERFACE SYSTEM GFR, >60 >=60 mL/min/1. 7 sq meter INTERFACE SYSTEM GFR >60 >=60 mL/min/1. 7 sq meter INTERFACE SYSTEM Comment: Estimated GFR rate interpretative information for both Americans and non- Americans is available on the [facility] Intranet at: [email or web address] ([email or web address])[email or web address] Select: Lab Policies and Procedures Select: Reference Ranges - GFR 05/01/2007 6:30 AM CARD PROCESSING CLERK Inderjit Us MD CHEMISTRY ORDERABLES Musa álvaro Performing Organization Address City/[facility]/ZIP Co de Phone Number INTERFACE SYSTEM Refer to clinic/hospital department * CBC WITH DIFFERENTIAL (04/27/2007 12:54 PM CARD PROCESSING CLERK) NEUTROPHIL ABSOLUTE 4.58 1.90 - 7.00 K/uL INTERFACE SYSTEM LYMPHOCYTE ABSOLUTE 3.87 0.70 - 4.50 K/uL INTERFACE SYSTEM MONOCYTE ABSOLUTE 0.26 0.10 - 1.30 K/uL INTERFACE SYSTEM EOSINOPHIL ABSOLUTE 0.09 0.00 - 0.70 K/uL INTERFACE SYSTEM BASOPHILS ABSOLUTE 0.00 0.00 - 0.20 K/uL INTERFACE SYSTEM NEUTROPHILS, SEG 52 45 - 70 % INT ERFACE SYSTEM LYMPHOCYTES 44 16 - 45 % INTERFAC E SYSTEM MONOCYTES 3 3 - 13 % INTERFACE SYSTEM EOSINOPHILS 1 0 - 7 % INTERFAC E SYSTEM BASOPHILS 0 0 - 2 % INTERFACE SYSTEM PLATELET EST. Normal Normal INTERF FRANCISCO J SYSTEM POIKILOCYTES Slight INTERFA CE SYSTEM COMMENT, DIFFERENTIAL INTERFACE SYSTEM Comment: Large platelets seen REVIEWED ON SMEAR Plt OK by Smear Rev. INTERFACE SYSTEM 04/27/2007 12:5 4 PM CARD PROCESSING CLERK Inderjit Us MD HEMATOLOGY ORDERABLES Ed ited Performing Organization Address [facility] de Phone Number INTERFACE SYSTEM Refer to clinic/hospital department * CBC WITH DIFFERENTIAL (04/27/2007 12:54 PM CARD PROCESSING CLERK) WBC 8.8 4.0 - 9.8 K/uL INTERFACE SYSTEM RBC 3.95 3.90 - 4.90 M/uL INTERFACE SYSTEM HEMOGLOBIN 12.1 11.8 - 14.8 g/dL INTERFACE SYSTEM HEMATOCRIT 35.9 35.5 - 44.0 % INTERFACE SYSTEM MCV 90.9 82.0 - 99.0 fL INTERFACE SYSTEM MCH 30.6 27.2 - 32.6 pg INTERFACE SYSTEM MCHC 33.7 31.5 - 35.5 % INTERFACE SYSTEM RDW 12.6 11.5 - 14.5 % INTERFACE SYSTEM RDW-STDEV 41.5 37.1 - 48.7 fL INTERFACE SYSTEM MPV 11.7 9.3 - 12.4 fL INTERFACE SYSTEM PLATELETS 256 140 - 350 K/uL INTERFACE SYSTEM 04/27/2007 12:5 4 PM CARD PROCESSING CLERK Inderjit Us MD HEMATOLOGY ORDERABLES Ed ited Performing Organization Address [facility] Phone Number INTERFACE SYSTEM Refer to clinic/hospital department * (ABNORMAL) BASIC METABOLIC PANEL (04/27/2007 12:54 PM CARD PROCESSING CLERK) GLUCOSE 97 65 - 99 mg/dL INTERFACE SYSTEM CREATININE 0.48(L) 0.51 - 0.95 mg/dL INTERFACE SYSTEM CALCIUM 8.5(L) 8.6 - 10.2 mg/dL INTERFACE SYSTEM BUN 10 6 - 20 mg/dL INTERFACE SYSTEM SODIUM 138 135 - 145 mmol/L INTERFACE SYSTEM POTASSIUM 4.6 3.5 - 4.9 mmol/L INTERFACE SYSTEM CHLORIDE 104 96 - 108 mmol/L INTERFACE SYSTEM CO2 19(L) 22 - 30 mmol/L INTERFACE SYSTEM GFR, >60 >=60 mL/min/1. 7 sq meter INTERFACE SYSTEM GFR >60 >=60 mL/min/1. 7 sq meter INTERFACE SYSTEM Comment: Estimated GFR rate interpretative information for both Americans and non- Americans is available on the [facility] Intranet at: [email or web address] [email or web address] ([email or web address])[email or web address] [email or web address]& ([email or web address] Select: Lab Policies and Procedures Select: Reference Ranges - GFR 04/27/2007 12:5 4 PM CARD PROCESSING CLERK Inderjit Us MD CHEMISTRY ORDERABLES Musa álvaro Performing Organization Address [facility] de Phone Number INTERFACE SYSTEM Refer to clinic/hospital department documented in this encounter Visit Diagnoses Diagnosis Hernia of unspecified site of abdominal cavity without mention of obstruction or gangrene documented in this encounter
--- OUTSIDE RECORDS SUMMARY | 2025-01-05 14:33 | XMS_ITS | Clinical Summary ---
Author Organization [facility] Address [address] [address] Phone Care Team Providers Care Make Up Worker Name Role Phone Unavailable Primary Care Provider Unavailabl e Social History Tobacco Use Types Packs/Day Years Used Date Smoking Tobacco: Never Assessed Comments Unknown Sex and Gender Information Value Date Recorded Sex Assigned at Not on file Legal Sex Female 5:29 AM PRECISE WINDER Gender Identity Not on file Sexual Orientation Not on file Plan of Treatment Health Maintenance Due Date Last Done Comments DTAP/TDAP/TD VACCINES (1 - Tdap) 1972 BREAST CANCER SCREENING 1993 COLORECTAL SCREENING 1998 Colorectal Cancer Screening 1998 FIT-DNA Q 3 years 1998 FIT/FOBT Q 1 year 1998 Flex Sig/CT Colonography Q 5 years 1998 PNEUMOCOCCAL VACCINE 50+ YEARS (1 of 1 - PCV) 09/03/19 04 ZOSTER VACCINE (1 of 2) 09/03/2003 OSTEOPOROSIS SCREENING 2018 INFLUENZA VACCINE (#1) 2024 RSV VACCINE (60+ or ) (1 - 1-dose 75+ series) 2028 Insurance MEDICARE PART A AND B [place]ICAID [place]
--- OUTSIDE RECORDS SUMMARY | 2025-01-05 14:33 | XMS_ITS | Encounter Summary ---
Author Organization [facility] Address [address] [place] [address] Care Team Providers Care Biostatistics Director Name Role Phone Bernard Coughlin MD Unavailable [phone] Martin Parker Primary Care Provider + Jenny Alvarez MD Primary Care Provider [phone] Gunner Huber MD Unavailable Encounter Details Date Type Department Care Team (Late st Contact Info) Description 07/15/2017 [facility] Unknown, Provider Social History Tobacco Use Types Packs/Day Years Used Date Smoking Tobacco: Former Cigarettes Q uit: 06/19/2016 Smokeless Tobacco: Never Alcohol Use Standard Drinks/Week Comments No 0 (1 standard drink = 0.6 oz pur e alcohol) Comments No Sex and Gender Information Value Date Recorded Sex Assigned at Not on file Legal Sex Female 2:09 PM 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 Gender Identity Not on file Sexual Orientation Not on file Occupation Industry Job Start Date Job End Date Retired Not on file Not on file Not on file documented as of this encounter Plan of Treatment Not on file documented as of this encounter Visit Diagnoses Not on filedocumented in this encounter Care Teams Biostatistics Director Relationship Specialty Start Date End Date Martni Parker PA [facility] [place] [address] PCP - General Physician Leak Inspector 01/09/17 05/13/22 Jenny Alvarez MD [address] [place], [place] [id number] PCP - General Gastroenterology 05/14/22 Bernard Coughlin MD Neurological Surgery 12/25/11 Gunner Huber MD [address] [place] [address] Cardiology 05/31/22 documented as of this encounter
--- OUTSIDE RECORDS SUMMARY | 2025-01-05 14:33 | XMS_ITS | Encounter Summary ---
Author Organization [facility] Health Address [address] [place] [address] Care Team Providers Care Activities Leader Name Role Phone Bernard Coughlin MD Unavailable [phone] Martin Parker Primary Care Provider + Jenny Alvarez MD Primary Care Provider [phone] Gunner Huber MD Unavailable [phone] Encounter Details Date Type Department Care Team (Late st Contact Info) Description 07/25/2017 [facility] Unknown, Provider Social History Tobacco Use Types Packs/Day Years Used Date Smoking Tobacco: Former Cigarettes Q uit: 06/19/2016 Smokeless Tobacco: Never Alcohol Use Standard Drinks/Week Comments No 0 (1 standard drink = 0.6 oz pur e alcohol) Comments No Sex and Gender Information Value Date Recorded Sex Assigned at Not on file 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 Gender Identity Not on file Sexual Orientation Not on file Occupation Industry Job Start Date Job End Date Retired Not on file Not on file Not on file documented as of this encounter Plan of Treatment Not on file documented as of this encounter Visit Diagnoses Not on filedocumented in this encounter Care Teams Activities Leader Relationship Specialty Start Date End Date Martin Parker PA [facility] [place] [address] PCP - General Physician Canal Tender 01/09/17 05/13/22 Jenny Alvarez MD [address] [place], [place] [id number] PCP - General Gastroenterology 05/14/22 Bernard Coughlin MD Neurological Surgery 12/25/11 Gunner Huber MD [address] [place] [address] Cardiology 05/31/22 documented as of this encounter
--- OUTSIDE RECORDS SUMMARY | 2025-01-05 14:33 | XMS_ITS | Clinical Summary ---
Author Organization [facility] Address [address] [facility] [place] [address] Care Team Providers Care Food Service Cashier Name Role Phone Bernard Coughlin MD Unavailable Jenny Alvarez MD Primary Care Provider [phone] Gunner Huber MD Unavailable [phone] Source Comments [facility],non-owned Affiliates and Associated Physician Practices is amultiple site organization consisting of ambulatory clinics and hospital sitesin [place], [place], [place] and [place]. This disclosure is being madepursuant to the Care Everywhere program and may not contain all information available regarding this patient. Last updated 18.[facility] Allergies No known active allergies Medications * Be aware that medications may not be up to date on this document. Alwaysverify current medications with the patient. simvastatin (ZOCOR) 40 MG tablet Take 1 (one) tablet by mouth at bedtime Active losartan (COZAAR) 100 MG tablet Take 1 (one) tablet by mouth once daily Active linaCLOtide (Linzess) 145 MCG capsule Take 2 (two) capsules by mouth daily before breakfast Take on an empty stomach at least 30 minutes prior to first meal of the day. Active gabapentin (NEURONTIN) 600 MG tablet Take 0.5 (one-half) tablet by mouth 3 times daily Active omeprazole (PRILOSEC) 20 MG capsule Take 1 (one) capsule by mouth daily before breakfast Active metoprolol succinate XL 24hr (TOPROL XL) 25 MG tablet TK 1 T PO QD 0 03/19/20 17 Active vitamin D, ergocalciferol, (DRISDOL) 57434 UNITS capsuleIndications: Cervicalgia,Neural foraminal stenosis of cervical spine,DDD (degenerative disc disease), cervical,S/P cervical spinal fusion,Aftercare following surgery of the musculoskeletal system every 7 days ON Fridays06/20/19 18 Active ferrous sulfate 325 (65 FE) MG tablet Take 1 (one) tablet by mouth daily with breakfast Active umeclidinium-vilant destiney (Anoro Ellipta) 62.5-25 MCG/ACT inhaler INHALE 1 PUFF BY MOUTH EVERY DAY DIRECTED Active cyanocobalamin (Vitamin B-12) 1000 MCG tablet Take 1 (one) tablet by mouth 2 times daily, before breakfast and supper 03/15/20 22 Active fluticasone propionate (Flonase Allergy Relief) 50 MCG/ACT nasal spray [place] 1 spray every day by intranasal route. 11/15/19 23 Active multivitamin daily tablet Take 1 (one) tablet by mouth daily with food Active mirtazapine (Remeron) 15 MG tablet Take 1 (one) tablet by mouth at bedtime Active HYDROcodone-acetami nophen ([place]) 10-325 MG tabletIndications:S /P lumbar laminectomy Take 2 (two) tablets by mouth every 4 hours as needed 12 tablet 01/15/20 23 Active dexAMETHasone (Decadron) 1 MG tablet Take 4 (four) tablets by mouth 3 times daily for 3 days, THEN 2 (two) tablets 3 times daily for 2 days, THEN 2 (two) tablets 2 times daily for 2 days, THEN 1 (one) tablet 2 times daily for 2 days, THEN 1 (one) tablet once daily for 2 days. 62 tablet 03/18/20 23 Active tiZANidine (Zanaflex) 4 MG tablet Take 1 (one) tablet by mouth every 8 hours as needed for Muscle Spasms (right foot stiffness) 30 tablet 1 03/18/20 23 Active Additional Information Patient not taking.Reported on 06/03/2023 Active Problems Problem Noted Date Diagnosed Date Chronic bilateral low back pain with bilateral s ciatica 01/09/2023 Cervicalgia 06/20/2022 S/P cervical spinal fusion 01/30/2017 Neural foraminal stenosis of cervical spine 01/11 Foraminal stenosis of lumbar region 12/27/2011 Family History Medical History Relation Name Comments Arthritis - Osteo Brother 1 COPD - Chronic Obstructive Pulmonary Disease Brother 1 Cancer Brother 1 Diabetes - Type 1 Brother 1 High Cholesterol Brother 1 Hypertension Brother 1 Other Brother 1 Heart Failure Alzheimer's Disease Father Arthritis - Osteo Father Hypertension Father Other Father Heart Failure,H ypercholesterolemia, Stroke Arthritis - Osteo Mother CAD (Coronary Artery Disease) Mother Diabetes - Type 2 Mother Hypertension Mother Migraine Mother Other Mother Heart Failure, Hypercholesterolemia Arthritis - Rheumatoid Sister High Cholesterol Sister Hypertension Sister Migraine Sister Relation Name Status Comments Brother 1 Brother 2 Alive Brother 3 Father Mother Sister Alive Social History Tobacco Use Types Packs/Day Years Used Date Smoking Tobacco: Former Cigarettes 0.5 58.6 1 965 - 12/29/2022 Smokeless Tobacco: Never Tobacco Cessation:Ready to Q uit: Not Asked; Counseling Given: Not Answered Alcohol Use Standard Drinks/Week Comments Not Currently 0 (1 standard drink = 0.6 oz pur e alcohol) AUDIT-C Answer Date Recorded Q1: How often do you have a drink containing alcohol? Never 01/09/2023 Q2: How many drinks containi ng alcohol do you have on a typical day when you are drinking? Patient does not drink Q3: How often do you have si x or more drinks on one occasion? Never 01/09/2023 Overall Financial Resource Strain (CARDIA) Answe r Date Recorded How hard is it for you to pa y for the very basics like food, housing, medical care, and heating? Not hard at all 01/12/2023 [facility] Occupat ional Health - Occupational Stress Questionnaire Answer Date Recorded Do you feel stress - tense, restless, nervous, or anxious, or unable to sleep at night because your mind is troubled all the time - these days? Not at all 01/12/2023 Hunger Vital Sign Answer Date Recorded Within the past 12 months, y ou worried that your food would run out before you got the money to buy more. Never true 01/13/20 23 Within the past 12 months, t he food you bought just didn't last and you didn't have money to get more. Never true 01/12/2023 PRAPARE - Transportation Answer Date Re corded In the past 12 months, has l ack of transportation kept you from medical appointments or from getting medications? No 07/2022 In the past 12 months, has l ack of transportation kept you from meetings, work, or from getting things needed for daily living? No 01/12/2023 Housing Stability Vital Sign Answer Dhiraj e Recorded In the last 12 months, was t here a time when you were not able to pay the mortgage or rent on time? No 01/12/2023 In the last 12 months, how many places have you lived? 1 01/12/2023 In the last 12 months, was t here a time when you did not have a steady place to sleep or slept in a half-way (including now)? 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 Gender Identity Not on file Sexual Orientation Not on file Occupation Industry Job Start Date Job End Date Retired Not on file Not on file Not on file Last Filed Vital Signs Vital Sign Reading Time Taken Comments Blood Pressure 130/80 04/13/2023 9:04 PM SOIL BIOLOGY TEACHER Pulse 70 04/13/2023 9:04 PM SOIL BIOLOGY TEACHER Temperature 37 C (98.6 F) 04/13/2023 9:04 PM SOIL BIOLOGY TEACHER Respiratory Rate 16 04/13/2023 9:04 PM SOIL BIOLOGY TEACHER Oxygen Saturation 99% 04/13/2023 9:04 PM SOIL BIOLOGY TEACHER Inhaled Oxygen Concentration - - Weight 59.9 kg (132 lb) 06/03/2023 12:00 PM SOIL BIOLOGY TEACHER Height 154.9 cm (5' 1) 06/03/2023 12:00 PM SOIL BIOLOGY TEACHER Body Mass Index 24.94 06/03/2023 12:00 PM SOIL BIOLOGY TEACHER Plan of Treatment Health Maintenance Due Date Last Done Comments BONE DENSITY TESTING 1955 COLOGUARD (AGES 45-75) - COLON CA SCREENING 1953 COLON MONITORING 1953 COLONOSCOPY - COLON CA SCREENING 1953 CT COLONOGRAPHY - COLON CA SCREENING 1953 Colorectal Cancer Screening 1953 FIT - COLON CA SCREENING 1953 FLEX SIG - COLON CA SCREENING 1955 MAMMOGRAM 1955 MEDICARE AWV 12 MONTHS 1953 HEPATITIS C SCREENING 08/29/1971 DTAP/TDAP/TD VACCINES (1 - Tdap) 1972 LUNG CANCER SCREENING 09/03/2003 PNEUMOCOCCAL VACCINE 50+ (1 of 1 - PCV) 09/03/2003 ZOSTER VACCINE (1 of 2) 09/03/2003 COVID-19 VACCINE (3 - season) 2024 08/07/2020, 07/08/2020 DEPRESSION SCREENING 05/12/2024 INFLUENZA VACCINE (#1) 2025 , 02/02/2019, 01/23/2017, Additional history exists Respiratory Syncytial Virus (RSV) Vaccine Pt: or over 60 yrs (1 - 1-dose 75+ series) 2028 HEPATITIS B VACCINE Aged Out No longe r eligible based on patient's age to complete this topic HIB VACCINE Aged Out No longer eligi ble based on patient's age to complete this topic HPV VACCINE Aged Out No longer eligi ble based on patient's age to complete this topic MENINGOCOCCAL (Group B) VACCINE SHARED DECISION-MAKING Aged Out No longer eligible based on patient's age to complete this topic MENINGOCOCCAL GROUPS A/C/Y/W VACCINE Aged Out No longer eligible based on patient's age to complete this topic Medical Devices Implanted Type Area Garland Machine Operator Device Identifier Shelf Expiration Date Model / Serial / Lot Spcr Spnl [id number] [facility] Crv Intbdy Implanted:Qty: 1 on 01/30/2017 by Fabian Campuzano MD at [facility] Spine Cervical [employer] 384.308 / / Screw 3.6mm 16mm Spne Slfdrl Va Bone Implanted:Qty: 2 on 01/30/2017 by Fabian Campuzano MD at [facility] Spine Cervical [employer] 184.156 / / Sub Bngf Progenix Dbm Bvn Clgn Ptty 1ml Implanted:Qty: 1 on 01/30/2017 by Fabian Cmapuzano MD at [facility] Spine Cervical Spinal [employer] [id number] / / [id number] Sub Bngf Vitoss Btcp Clgn Void Dario Fm Pk Implanted:Qty: 1 on 06/20/2022 by Fabian Campuzano MD at [facility] N/A: Spine Cervical [employer] 11/07/2023 [id number] / / [id number] Description:c4-5 Spcr Spnl 16x9mm Coalition 7d Lrdtc 14mm Implanted:Qty: 1 on 06/20/2022 by Fabian Campuzano MD at [facility] N/A: Spine Cervical [employer] 384.309 / / Screw 3.6mm 16mm Slfdrl Va Spne Bone Implanted:Qty: 2 on 06/20/2022 by Fabian Campuzano MD at [facility] N/A: Spine Cervical [employer] 184.156 / / Insurance MEDICAID - [place] MEDICARE Advance Directives * Full Code (Latest Code Status on File) Date Activated Date Inactivated Comments 01/09/2023 11:44 AM 01/14/2023 8:12 PM * Full Code Date Activated Date Inactivated Comments 06/20/2022 4:26 PM 06/22/2022 3:51 PM * Full Code Date Activated Date Inactivated Comments 01/30/2017 6:02 PM 01/31/2017 2:44 PM Care Teams Food Service Cashier Relationship Specialty Start Date End Date Jenny Alvarez MD [address] [place], [place] [id number] PCP - General Gastroenterology 05/14/22 Bernard Coughlin MD Neurological Surgery 12/25/11 Gunner Huber MD [address] [place] [address] Cardiology 05/31/22
== END 2025-01-05 14:20 | disposition home or self-care (01) ==
PROVIDERS: PCP Emergency Medicine; Visit Provider Emergency Medicine
DX: Z12.2 Encounter for screening for malignant neoplasm of respiratory organs (principal); Z87.891 Personal history of nicotine dependence
CPT/HCPCS: 71271

== ENCOUNTER 2025-02-08 09:26 | Outpatient (CLI) | payer MEDICARE, MEDICAID, SELFPAY ==
--- NOTE | ~2025-02-08 | CT_ITS ---
EXAMINATION: CT abdomen pelvis wo con DATE: 02/08/2025 09:44 INDICATION: Incisional hernia without obstruction or gangrene. TECHNIQUE: Computed tomography (CT) of the abdomen and pelvis was performed without intravenous contrast. Automated exposure control and iterative reconstruction technique were employed. The dose-length product was 176.24 mGy-cm. COMPARISON: CT abdomen and pelvis 03/25/2023 FINDINGS: The visualized portions of the lung bases are clear without pneumonia or pleural effusion. The heart size is normal. No pericardial effusion. Calcifications in the liver and spleen are consistent with old granulomatous disease. There are changes of cholecystectomy. There are changes of gastric bypass procedure. The pancreas and adrenal glands are normal. There is cortical thinning of right kidney. There is moderate atrophy of left kidney. There are no dilated loops of bowel. There are appendix is normal. There are changes of ventral hernia repair. There is a right-sided ventral hernia containing fat. There are no pathologically enlarged lymph nodes. There is no ascites. There is lumbar levoscoliosis and severe spondylosis. IMPRESSION: 1. Right-sided ventral hernia containing fat. Reviewed, dictated and finalized at location E.
--- OUTSIDE RECORDS SUMMARY | 2025-02-08 10:04 | XMS_ITS | Clinical Summary ---
Author Organization [facility] Address [address] [place] [address] Care Team Providers Care Ice Scraper Name Role Phone Bernard Coughlin MD Unavailable Jenny Alvarez MD Primary Care Provider [phone] Gunner Huber MD Unavailable [phone] Source Comments [facility],non-owned Affiliates and Associated Physician Practices is amultiple site organization consisting of ambulatory clinics and hospital sitesin [place], [place], [place] and [place]. This disclosure is being madepursuant to the Care Everywhere program and may not contain all information available regarding this patient. Last updated 18.[facility] Allergies No known active allergies Medications [...] 03/19/20 17 Active vitamin D, ergocalciferol, (DRISDOL) 30326 UNITS capsuleIndications: Cervicalgia,Neural foraminal stenosis of cervical [...] (Flonase Allergy Relief) 50 MCG/ACT nasal spray [place] 1 spray every day by intranasal route. 11/15/19 23 Active multivitamin daily tablet Take 1 (one) tablet by mouth daily with food Active mirtazapine (Remeron) 15 MG tablet Take 1 (one) tablet by mouth at bedtime Active HYDROcodone-acetami nophen ([place]) 10-325 MG tabletIndications:S /P lumbar laminectomy Take [...] and heating? Not hard at all 01/12/2023 [facility] of Occupat ional Health - Occupational Stress [...] place to sleep or slept in a skilled nursing (including now)? No 01/12/2023 Comments No Sex and Gender Information Value Date Recorded Sex Assigned at Not on file Legal Sex Female 2:09 PM YARD PERSON Gender Identity Not on file Sexual Orientation Not on file Occupation Industry Job Start Date Job End Date Retired Not on file Not on file Not on file Last Filed Vital Signs Vital Sign Reading Time Taken Comments Blood Pressure 130/80 04/13/2023 9:04 PM YARD PERSON Pulse 70 04/13/2023 9:04 PM YARD PERSON Temperature 37 C (98.6 F) 04/13/2023 9:04 PM YARD PERSON Respiratory Rate 16 04/13/2023 9:04 PM YARD PERSON Oxygen Saturation 99% 04/13/2023 9:04 PM YARD PERSON Inhaled Oxygen Concentration - - Weight 59.9 kg (132 lb) 06/03/2023 12:00 PM YARD PERSON Height 154.9 cm (5' 1) 06/03/2023 12:00 PM YARD PERSON Body Mass Index 24.94 06/03/2023 12:00 PM YARD PERSON Plan of Treatment Health Maintenance Due Date [...] 09/03/2003 ZOSTER VACCINE (1 of 2) 09/03/2003 DEPRESSION SCREENING 05/12/2024 COVID-19 VACCINE (3 - 2024- season) 2025 08/07/2020, 07/08/2020 INFLUENZA VACCINE (#1) 2025 , 02/02/2019, 01/23/2017, [...] this topic Medical Devices Implanted Type Area Rehab Liaison Device Identifier Shelf Expiration Date Model / Serial / Lot Spcr Spnl [id number] [facility] Crv Intbdy Implanted:Qty: 1 on 01/30/2017 by Fabian Campuzano MD at [facility] Spine Cervical [employer] 384.308 / / Screw 3.6mm 16mm Spne Slfdrl Va Bone Implanted:Qty: 2 on 01/30/2017 by Fabian Campuzano MD at [facility] Spine Cervical [employer] 184.156 / / Sub Bngf [employer] Dbm Bvn Clgn Ptty 1ml Implanted:Qty: 1 on 01/30/2017 by Fabian Campuzano MD at [facility] Spine Cervical Spinal [employer] [id number] / / [id number] Sub Bngf Vitoss Btcp Clgn Void Dario Fm Pk Implanted:Qty: 1 on 06/20/2022 by Fabian Campuzano MD at [facility] N/A: Spine Cervical [employer] 11/07/2023 [id number] / / [id number] Description:c4-5 Spcr Spnl 16x9mm [place] 7d Lrdtc 14mm Implanted:Qty: 1 on 06/20/2022 by Fabian Campuzano MD at [facility] N/A: Spine Cervical [employer] 384.309 / / Screw 3.6mm 16mm Slfdrl Va Spne Bone Implanted:Qty: 2 on 06/20/2022 by Fabian Campuzano MD at [facility] N/A: Spine Cervical [employer] 184.156 / [...] 6:02 PM 01/31/2017 2:44 PM Care Teams Ice Scraper Relationship Specialty Start Date End Date Jenny Alvarez MD [address] [place], [place] [id number] PCP - General Gastroenterology 05/14/22 Bernard Coughlin MD Neurological Surgery 12/25/11 Gunner Huber MD [address] [place] [address] Cardiology 05/31/22
--- OUTSIDE RECORDS SUMMARY | 2025-02-08 10:04 | XMS_ITS | Encounter Summary ---
Author Organization [employer] Address [address] [place] [address] Care Team Providers Care Scuba Dive Training Instructor Name Role Phone Unavailable Primary Care Provider Unavailabl e Encounter Details Date Type Department Care Team (Late st Contact Info) Description 04/27/2007 Outpatient Historical HIS INPATIENT IN BED Inderjit Us MD [address] [place] [address] Hernia Social History Tobacco Use Types Packs/Day Years Used Date Smoking Tobacco: Never Assessed Comments Unknown Sex and Gender Information Value Date Recorded Sex Assigned at Not on file Legal Sex Female 5:29 AM GENERAL DISTILLERY WORKER Gender Identity Not on file Sexual Orientation Not on file documented as of this encounter Plan of Treatment Not on file documented as of this encounter Procedures Procedure Name Priority Date/Time Associated Diagnosis Comments CBC WITH DIFFERENTIAL Routine 05/03/2007 5:30 AM GENERAL DISTILLERY WORKER CBC WITH DIFFERENTIAL Routine 05/03/2007 5:30 AM GENERAL DISTILLERY WORKER CBC WITH DIFFERENTIAL Routine 05/03/2007 5:30 AM GENERAL DISTILLERY WORKER CBC WITH DIFFERENTIAL Routine 05/02/2007 7:40 AM GENERAL DISTILLERY WORKER CBC WITH DIFFERENTIAL Routine 05/02/2007 7:40 AM GENERAL DISTILLERY WORKER CBC WITH DIFFERENTIAL Routine 05/02/2007 5:15 AM GENERAL DISTILLERY WORKER CBC WITH DIFFERENTIAL Routine 05/02/2007 5:15 AM GENERAL DISTILLERY WORKER CBC WITH DIFFERENTIAL Routine 05/01/2007 6:30 AM GENERAL DISTILLERY WORKER CBC WITH DIFFERENTIAL Routine 05/01/2007 6:30 AM GENERAL DISTILLERY WORKER BASIC METABOLIC PANEL Routine 05/01/2007 6:30 AM GENERAL DISTILLERY WORKER CBC WITH DIFFERENTIAL Routine 04/27/2007 12:54 PM GENERAL DISTILLERY WORKER CBC WITH DIFFERENTIAL Routine 04/27/2007 12:54 PM GENERAL DISTILLERY WORKER BASIC METABOLIC PANEL Routine 04/27/2007 12:54 PM GENERAL DISTILLERY WORKER documented in this encounter Results * (ABNORMAL) CBC WITH DIFFERENTIAL (05/03/2007 5:30 AM GENERAL DISTILLERY WORKER) Pathologist [facility] NEUTROPHIL ABSOLUTE 3.62 1.90 - 7.00 K/uL [...] Normal INTER FACE SYSTEM 05/03/2007 5:30 AM GENERAL DISTILLERY WORKER Matty Hill MD HEMATOLOGY ORDERABLES Edit ed Performing Organization Address [facility] Phone Number INTERFACE SYSTEM Refer to clinic/hospital department * CBC WITH DIFFERENTIAL (05/03/2007 5:30 AM GENERAL DISTILLERY WORKER) Pathologist [facility] NRBC 0 <=0 /100 WBC INTERFACE SYSTEM 05/03/2007 5:30 AM GENERAL DISTILLERY WORKER Matty Hill MD HEMATOLOGY ORDERABLES Edit ed Performing Organization Address [facility] de Phone Number INTERFACE SYSTEM Refer to clinic/hospital department * (ABNORMAL) CBC WITH DIFFERENTIAL (05/03/2007 5:30 AM GENERAL DISTILLERY WORKER) WBC 5.4 4.0 - 9.8 K/uL INTERFACE [...] 12.4 fL INTERFACE SYSTEM 05/03/2007 5:30 AM GENERAL DISTILLERY WORKER Matty Hill MD HEMATOLOGY ORDERABLES Edit ed Performing Organization Address [facility] Phone Number INTERFACE SYSTEM Refer to clinic/hospital department * (ABNORMAL) CBC WITH DIFFERENTIAL (05/02/2007 7:40 AM GENERAL DISTILLERY WORKER) NEUTROPHILS 73(H) 45 - 70 % INTERFAC [...] 0.20 K/uL INTERFACE SYSTEM 05/02/2007 7:40 AM GENERAL DISTILLERY WORKER Matty Hill MD HEMATOLOGY ORDERABLES Edit ed Performing Organization Address [facility] Phone Number INTERFACE SYSTEM Refer to clinic/hospital department * (ABNORMAL) CBC WITH DIFFERENTIAL (05/02/2007 7:40 AM GENERAL DISTILLERY WORKER) WBC 5.9 4.0 - 9.8 K/uL INTERFACE [...] 12.4 fL INTERFACE SYSTEM 05/02/2007 7:40 AM GENERAL DISTILLERY WORKER Matty Hill MD HEMATOLOGY ORDERABLES Edit ed Performing Organization Address [facility] Phone Number INTERFACE SYSTEM Refer to clinic/hospital department * (ABNORMAL) CBC WITH DIFFERENTIAL (05/02/2007 5:15 AM GENERAL DISTILLERY WORKER) NEUTROPHILS 74(H) 45 - 70 % INTERFAC [...] 0.20 K/uL INTERFACE SYSTEM 05/02/2007 5:15 AM GENERAL DISTILLERY WORKER Inderjit Us MD HEMATOLOGY ORDERABLES Ed ited Performing Organization Address [facility] Phone Number INTERFACE SYSTEM Refer to clinic/hospital department * (ABNORMAL) CBC WITH DIFFERENTIAL (05/02/2007 5:15 AM GENERAL DISTILLERY WORKER) WBC 5.5 4.0 - 9.8 K/uL INTERFACE [...] 12.4 fL INTERFACE SYSTEM 05/02/2007 5:15 AM GENERAL DISTILLERY WORKER Inderjit Us MD HEMATOLOGY ORDERABLES Ed ited Performing Organization Address [facility] Phone Number INTERFACE SYSTEM Refer to clinic/hospital department * (ABNORMAL) CBC WITH DIFFERENTIAL (05/01/2007 6:30 AM GENERAL DISTILLERY WORKER) [facility] NEUTROPHILS 81(H) 45 - 70 % [...] 0.20 K/uL INTERFACE SYSTEM 05/01/2007 6:30 AM GENERAL DISTILLERY WORKER Inderjit Us MD HEMATOLOGY ORDERABLES Ed ited Performing Organization Address [facility] Phone Number INTERFACE SYSTEM Refer to clinic/hospital department * (ABNORMAL) CBC WITH DIFFERENTIAL (05/01/2007 6:30 AM GENERAL DISTILLERY WORKER) WBC 6.8 4.0 - 9.8 K/uL INTERFACE [...] 12.4 fL INTERFACE SYSTEM 05/01/2007 6:30 AM GENERAL DISTILLERY WORKER us Inderjit Us MD HEMATOLOGY ORDERABLES Ed ited INTERFACE SYSTEM Refer to clinic/hospital department * (ABNORMAL) BASIC METABOLIC PANEL (05/01/2007 6:30 AM GENERAL DISTILLERY WORKER) GLUCOSE 113(H) 65 - 99 mg/dL INTERFACE [...] and non- Americans is available on the [facility] Intranet at: [email or web address] Select: Lab Policies and Procedures Select: Reference Ranges - GFR 05/01/2007 6:30 AM GENERAL DISTILLERY WORKER Inderjit Us MD CHEMISTRY ORDERABLES Musa álvaro Performing Organization Address City/[facility]/ZIP Co de Phone Number INTERFACE SYSTEM Refer to clinic/hospital department * CBC WITH DIFFERENTIAL (04/27/2007 12:54 PM GENERAL DISTILLERY WORKER) NEUTROPHIL ABSOLUTE 4.58 1.90 - 7.00 K/uL [...] Rev. INTERFACE SYSTEM 04/27/2007 12:5 4 PM GENERAL DISTILLERY WORKER Inderjit Us MD HEMATOLOGY ORDERABLES Ed ited Performing Organization Address [facility] de Phone Number INTERFACE SYSTEM Refer to clinic/hospital department * CBC WITH DIFFERENTIAL (04/27/2007 12:54 PM GENERAL DISTILLERY WORKER) WBC 8.8 4.0 - 9.8 K/uL INTERFACE [...] K/uL INTERFACE SYSTEM 04/27/2007 12:5 4 PM GENERAL DISTILLERY WORKER Inderjit Us MD HEMATOLOGY ORDERABLES Ed ited Performing Organization Address [facility] Phone Number INTERFACE SYSTEM Refer to clinic/hospital department * (ABNORMAL) BASIC METABOLIC PANEL (04/27/2007 12:54 PM GENERAL DISTILLERY WORKER) GLUCOSE 97 65 - 99 mg/dL INTERFACE [...] and non- Americans is available on the [facility] Intran[facility] at: [email or web address] Select: Lab Policies and Procedures Select: Reference Ranges - GFR 04/27/2007 12:5 4 PM GENERAL DISTILLERY WORKER Inderjit Us MD CHEMISTRY ORDERABLES Musa álvaro Performing Organization Address [facility] de Phone Number INTERFACE SYSTEM Refer to clinic/hospital department documented in this encounter Visit Diagnoses Diagnosis Hernia of unspecified site of abdominal cavity without mention of obstruction or gangrene documented in this encounter
--- OUTSIDE RECORDS SUMMARY | 2025-02-08 10:04 | XMS_ITS | Clinical Summary ---
Author Organization [facility] Address [address] [address] Phone Care Team Providers Care Security Ambassador Name Role Phone Unavailable Primary Care Provider Unavailabl e Social History Tobacco Use Types Packs/Day Years Used Date Smoking Tobacco: Never Assessed Comments Unknown Sex and Gender Information Value Date Recorded Sex Assigned at Not on file Legal Sex Female 5:29 AM TRANSFER COORDINATOR Gender Identity Not on file Sexual Orientation [...]
--- OUTSIDE RECORDS SUMMARY | 2025-02-08 10:04 | XMS_ITS | Encounter Summary ---
Author Organization [facility] Health Address [address] 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 Gender Identity Not on file Sexual Orientation Not on file Occupation Industry Job Start Date Job End Date Retired Not on file Not on file Not on file documented as of this encounter Plan of Treatment Not on file documented as of this encounter Visit Diagnoses Not on filedocumented in this encounter Care Teams Territory Sales Manager Relationship Specialty Start Date End Date Martin Parker PA [facility] [place] [address] PCP - General Physician Rn Psych 01/09/17 05/13/22 Jenny Alvarez MD [address] [place], [place] [id number] PCP - General Gastroenterology 05/14/22 Bernard Coughlin MD Neurological Surgery 12/25/11 Gunner Huber MD [address] [place] [address] Cardiology 05/31/22 documented as of this encounter
--- OUTSIDE RECORDS SUMMARY | 2025-02-08 10:04 | XMS_ITS | Clinical Summary ---
Author Organization [facility] Address [address] [place] [address] Care Team Providers Care Options Advisor Name Role Phone Jenny Alvarez MD Primary Care Provider Allergies No known active allergies Medications acetaminophen (TYLENOL) 500 mg tabletIndicatio ns:Pain Take 1-2 tablets (500-1,000 mg total) by mouth every 6 (six) hours as needed for pain (1 tablet for mild to moderate pain. 2 tablets for severe pain) 30 tablet 2 Active losartan (COZAAR) 100 mg tablet Take [...] mouth 3 (three) times a day Active HYDROcodone-judy taminophen (NORCO) 10-325 mg per tablet Take 1 tablet by mouth every 4 (four) hours as needed Active mirtazapine (REMERON) 7.5 mg tablet mirtazapine 7.5 mg tablet TAKE 1 TABLET BY MOUTH EVERY DAY AT BEDTIME Active cyanocobalamin (Vitamin B-12) 1,000 mcg tablet Take 1 tablet (1,000 mcg total) by mouth 2 (two) times a day Active ergocalciferol, vitamin D2, 50 mcg (2,000 unit) tablet Take 50,000 Units by mouth once a week 1 Active Coreg 6.25 mg tablet Take 1 tablet (6.25 mg total) by mouth 2 (two) times a day with meals Active rOPINIRole (REQUIP) 0.25 mg tablet TAKE 2 TABLETS PO EVERY NIGHT AT BEDTIME IF PAIN NOT CONTROLLED 60 tablet 5 5 Active Active Problems Problem Noted Date Diagnosed Date [...] on file Legal Sex Female 7:39 PM DIAL EQUIPMENT ENGINEER Gender Identity Not on file Sexual Orientation [...] 09/03/2003 Well Visit 65+ 2018 Covid-19 Vaccine (2024-2 6 season) 2025 01/04/2022, 04/23/2021, 08/07/2020, Additional history exists Influenza Vaccine (#1) 2025 2, 03/26/2021, 03/28/2020, Additional history exists DTaP/Tdap/Td Vaccine (2 - Td or Tdap) 08/01/2031 07/31/2021 Pneumococcal vaccine 65+ Completed 022, 03/28/2020, 02/24/2015 Insurance MEDICARE [facility] MEDICARE IDPA IDPA Care Teams Options Advisor Relationship Specialty [place] [address] [place] [id number] PCP - General Gastroenterology 04/30/24
--- OUTSIDE RECORDS SUMMARY | 2025-02-08 10:04 | XMS_ITS | Encounter Summary ---
Author Organization [facility] Health Address [address] [place] [address] Care Team Providers Care Electrical Maintenance Mechanic Name Role Phone Bernard Coughlin MD Unavailable [phone] Martin Parker Primary Care Provider + Jenny Alvarez MD Primary Care Provider [phone] Gunner Huber MD Unavailable [phone] Encounter Details Date Type Department Care [...] on file Legal Sex Female 2:09 PM FRONT DESK Gender Identity Not on file Sexual Orientation Not on file Occupation Industry Job Start Date Job End Date Retired Not on file Not on file Not on file documented as of this encounter Plan of Treatment Not on file documented as of this encounter Visit Diagnoses Not on filedocumented in this encounter Care Teams Electrical Maintenance Mechanic Relationship Specialty Start Date End Date Martin Parker PA [facility] [place] [address] PCP - General Physician Industrial Hygenist 01/09/17 05/13/22 Jenny Alvarez MD [address] [place], [place] [id number] PCP - General Gastroenterology 05/14/22 Bernard Coughlin MD Neurological Surgery 12/25/11 Gunner Huber MD [address] [place] [address] Cardiology 05/31/22 documented as of this encounter
== END 2025-02-08 09:27 | disposition home or self-care (01) ==
PROVIDERS: PCP Emergency Medicine; Visit Provider Surgery
DX: K43.2 Incisional hernia without obstruction or gangrene (principal)
CPT/HCPCS: 74176

== ENCOUNTER 2025-03-17 09:57 | Outpatient (CLI) | payer MEDICARE, MEDICAID, SELFPAY ==
--- OUTSIDE RECORDS SUMMARY | 2007-11-09 10:12 | XMS_ITS | Continuity of Care Document ---
Author Organization [facility] Address [address] [place] [address] [place] [address] Phone Care Team Providers Care Slate Worker Name Role Phone Tulio Horton Unavailable Unavailable Procedures Procedure Date Visual Field Examination-Professional Ju Visual Field Examination-Technical Eye Exam, New Patient Optic Nerve Head Eval Advance Directives Directive Yes / No Effective Date File Name No Information Encounters Encounter Description Practice Location Reason(s) For Visit Diagnoses Date Provider Providers Copied on Encounter [facility], [address] [place] [address] [address], [place], [place], [id number], tel:[phone] SEC [facility] No Information 0200 8 Eugeneishnasrosalie Tulio. [address] [place] [address], [facility], [place]. tel:[phone] Referring Provider: Tulio strickland, [address] [place] [address], [place], [place], [facility]. tel:[phone] [facility], [address] [place] [address] [address], [place], [place], [id number], tel:[phone] SEC [facility] No Information 3200 8 Krishnasamy Tulio. [address] [place] [address], [facility], [place]. tel:[phone] Referring Provider: Tulio strickland, [address] [place] [address], [place], [place], [facility]. tel:[phone] [facility], [address], [place], [place], [id number], [place] tel:[phone] [facility] [place] No Information 9200 8 Clifford Antunez. [address] [facility] [place], [place], [address], [place]. tel:[phone] Family History Family Member Type Diagnosis Age At Onset No Information Payers Payer name Insurance type Covered constitution party ID Authoriza tion(s) Medicare [facility] [id number] Medicaid [facility] [id number] Social History Type Description Quantity Date Captured Comments Sex Female Smoking Status No Information Chief Complaint And Reason For Visit No Information Reason For Referral Reason For Referral No Information History Of Present Illness Encounter Date Complaint History Of Prese nt Illness No Information Functional Status Date Functional Assessmen t No Information Instructions Date Instruction Additional Infor mation No Information Assessments Type Assessment Date No Information Patient Care Teams Name Effective Dates (start - stop) Status Members No Information
--- NOTE | ~2025-03-17 | US_ITS ---
EXAM: US abdomen complete HISTORY: High ferritin. Fatty liver. COMPARISON(S): None. FINDINGS: Pancreas: It is normal in sonographic appearance. Aorta and proximal IVC: Calcific atherosclerotic disease of the abdominal aorta. Liver: It shows normal echogenicity and homogenous echotexture. No hepatic lesions are demonstrated. There is normal directional flow in the portal vein. Gallbladder: Surgically absent. Bile ducts: The CBD measures 7 mm in diameter. This is within normal limits. There is no intrahepatic ductal dilatation seen. Spleen: No significant abnormality is seen. Right Kidney: The length is 11.1 cm. There is normal echogenicity and cortical thickness. There are no parenchymal lesions, and there is no hydronephrosis. There is an extrarenal pelvis. Left Kidney: It is small compared to the right with a length of only 7.1 cm. It has normal echogenicity. The Cortical thickness is minimally scanned at 9 mm. It should be a minimum thickness of 10 mm. There is at least one small cyst, and there is no hydronephrosis. Ascites: There is no ascites seen. IMPRESSION: No significant liver abnormality is seen. Atrophy of the left kidney. This could relate to the atherosclerotic disease if it involves the renal artery. Reviewed, dictated and finalized at location A. [facility]OR PEDIATRIC IMPRESSION: No significant liver abnormality is seen. Atrophy of the left kidney. This coul d relate to the atherosclerotic disease if it involves the renal artery.
--- OUTSIDE RECORDS SUMMARY | 2025-03-17 18:20 | XMS_ITS | Encounter Summary ---
Author Organization [employer] Address [address] [place] [address] Care Team Providers Care Plumber Maintenance Name Role Phone Unavailable Primary Care Provider Unavailabl e Encounter Details Date Type Department Care Team (Late st Contact Info) Description 04/27/2007 Outpatient Historical HIS INPATIENT IN BED Inderjit Us MD [address] [place] [address] Hernia Social History Tobacco Use Types Packs/Day Years Used Date Smoking Tobacco: Never Assessed Comments Unknown Sex and Gender Information Value Date Recorded Sex Assigned at Not on file Legal Sex Female 5:29 AM FARMER TREE FRUIT AND NUT CROPS Gender Identity Not on file Sexual Orientation Not on file documented as of this encounter Plan of Treatment Not on file documented as of this encounter Procedures Procedure Name Priority Date/Time Associated Diagnosis Comments CBC WITH DIFFERENTIAL Routine 05/03/2007 5:30 AM FARMER TREE FRUIT AND NUT CROPS CBC WITH DIFFERENTIAL Routine 05/03/2007 5:30 AM FARMER TREE FRUIT AND NUT CROPS CBC WITH DIFFERENTIAL Routine 05/03/2007 5:30 AM FARMER TREE FRUIT AND NUT CROPS CBC WITH DIFFERENTIAL Routine 05/02/2007 7:40 AM FARMER TREE FRUIT AND NUT CROPS CBC WITH DIFFERENTIAL Routine 05/02/2007 7:40 AM FARMER TREE FRUIT AND NUT CROPS CBC WITH DIFFERENTIAL Routine 05/02/2007 5:15 AM FARMER TREE FRUIT AND NUT CROPS CBC WITH DIFFERENTIAL Routine 05/02/2007 5:15 AM FARMER TREE FRUIT AND NUT CROPS CBC WITH DIFFERENTIAL Routine 05/01/2007 6:30 AM FARMER TREE FRUIT AND NUT CROPS CBC WITH DIFFERENTIAL Routine 05/01/2007 6:30 AM FARMER TREE FRUIT AND NUT CROPS BASIC METABOLIC PANEL Routine 05/01/2007 6:30 AM FARMER TREE FRUIT AND NUT CROPS CBC WITH DIFFERENTIAL Routine 04/27/2007 12:54 PM FARMER TREE FRUIT AND NUT CROPS CBC WITH DIFFERENTIAL Routine 04/27/2007 12:54 PM FARMER TREE FRUIT AND NUT CROPS BASIC METABOLIC PANEL Routine 04/27/2007 12:54 PM FARMER TREE FRUIT AND NUT CROPS documented in this encounter Results * (ABNORMAL) CBC WITH DIFFERENTIAL (05/03/2007 5:30 AM FARMER TREE FRUIT AND NUT CROPS) Pathologist [facility] NEUTROPHIL ABSOLUTE 3.62 1.90 - 7.00 [...] Normal INTER FACE SYSTEM 05/03/2007 5:30 AM FARMER TREE FRUIT AND NUT CROPS Matty Hill MD HEMATOLOGY ORDERABLES Edit ed Performing Organization Address [facility] Phone Number INTERFACE SYSTEM Refer to clinic/hospital department * CBC WITH DIFFERENTIAL (05/03/2007 5:30 AM FARMER TREE FRUIT AND NUT CROPS) Pathologist [facility] NRBC 0 <=0 /100 WBC INTERFACE SYSTEM 05/03/2007 5:30 AM FARMER TREE FRUIT AND NUT CROPS Matty Hill MD HEMATOLOGY ORDERABLES Edit ed Performing Organization Address [facility] de Phone Number INTERFACE SYSTEM Refer to clinic/hospital department * (ABNORMAL) CBC WITH DIFFERENTIAL (05/03/2007 5:30 AM FARMER TREE FRUIT AND NUT CROPS) WBC 5.4 4.0 - 9.8 K/uL INTERFACE [...] 12.4 fL INTERFACE SYSTEM 05/03/2007 5:30 AM FARMER TREE [employer]UIT AND NUT CROPS Matty Hill MD HEMATOLOGY ORDERABLES Edit ed Performing Organization Address [facility] Phone Number INTERFACE SYSTEM Refer to clinic/hospital department * (ABNORMAL) CBC WITH DIFFERENTIAL (05/02/2007 7:40 AM FARMER TREE FRUIT AND NUT CROPS) NEUTROPHILS 73(H) 45 - 70 % INTERFAC [...] 0.20 K/uL INTERFACE SYSTEM 05/02/2007 7:40 AM FARMER TREE FRUIT AND NUT CROPS Matty Hill MD HEMATOLOGY ORDERABLES Edit ed Performing Organization Address [facility] Phone Number INTERFACE SYSTEM Refer to clinic/hospital department * (ABNORMAL) CBC WITH DIFFERENTIAL (05/02/2007 7:40 AM FARMER TREE FRUIT AND NUT CROPS) WBC 5.9 4.0 - 9.8 K/uL INTERFACE [...] 12.4 fL INTERFACE SYSTEM 05/02/2007 7:40 AM FARMER TREE FRUIT AND NUT CROPS Matty Hill MD HEMATOLOGY ORDERABLES Edit ed Performing Organization Address [facility] Phone Number INTERFACE SYSTEM Refer to clinic/hospital department * (ABNORMAL) CBC WITH DIFFERENTIAL (05/02/2007 5:15 AM FARMER TREE FRUIT AND NUT CROPS) NEUTROPHILS 74(H) 45 - 70 % INTERFAC [...] 0.20 K/uL INTERFACE SYSTEM 05/02/2007 5:15 AM FARMER TREE FRUIT AND NUT CROPS Inderjit Us MD HEMATOLOGY ORDERABLES Ed ited Performing Organization Address [facility] Phone Number INTERFACE SYSTEM Refer to clinic/hospital department * (ABNORMAL) CBC WITH DIFFERENTIAL (05/02/2007 5:15 AM FARMER TREE FRUIT AND NUT CROPS) WBC 5.5 4.0 - 9.8 K/uL INTERFACE [...] 12.4 fL INTERFACE SYSTEM 05/02/2007 5:15 AM FARMER TREE FRUIT AND NUT CROPS Inderjit Us MD HEMATOLOGY ORDERABLES Ed ited Performing Organization Address [facility] Phone Number INTERFACE SYSTEM Refer to clinic/hospital department * (ABNORMAL) CBC WITH DIFFERENTIAL (05/01/2007 6:30 AM FARMER TREE FRUIT AND NUT CROPS) [facility] NEUTROPHILS 81(H) 45 - 70 % INTERFAC [...] 0.20 K/uL INTERFACE SYSTEM 05/01/2007 6:30 AM FARMER TREE FRUIT AND NUT CROPS Inderjit Us MD HEMATOLOGY ORDERABLES Ed ited Performing Organization Address [facility] Phone Number INTERFACE SYSTEM Refer to clinic/hospital department * (ABNORMAL) CBC WITH DIFFERENTIAL (05/01/2007 6:30 AM FARMER TREE FRUIT AND NUT CROPS) WBC 6.8 4.0 - 9.8 K/uL INTERFACE [...] 12.4 fL INTERFACE SYSTEM 05/01/2007 6:30 AM FARMER TREE FRUIT AND NUT CROPS us Inderjit Us MD HEMATOLOGY ORDERABLES Ed ited INTERFACE SYSTEM Refer to clinic/hospital department * (ABNORMAL) BASIC METABOLIC PANEL (05/01/2007 6:30 AM FARMER TREE FRUIT AND NUT CROPS) GLUCOSE 113(H) 65 - 99 mg/dL INTERFACE [...] and non- Americans is available on the [facility] Intranet at: [email or web address] Select: Lab Policies and Procedures Select: Reference Ranges - GFR 05/01/2007 6:30 AM FARMER TREE [employer]UIT [employer] NUT CROPS Inderjit Us MD CHEMISTRY ORDERABLES Musa álvaro Performing Organization Address City/[facility]/ZIP Co de Phone Number INTERFACE SYSTEM Refer to clinic/hospital department * CBC WITH DIFFERENTIAL (04/27/2007 12:54 PM FARMER TREE FRUIT AND NUT CROPS) NEUTROPHIL ABSOLUTE 4.58 1.90 - 7.00 K/uL [...] Rev. INTERFACE SYSTEM 04/27/2007 12:5 4 PM FARMER TREE FRUIT AND NUT CROPS Inderjit Us MD HEMATOLOGY ORDERABLES Ed ited Performing Organization Address [facility] de Phone Number INTERFACE SYSTEM Refer to clinic/hospital department * CBC WITH DIFFERENTIAL (04/27/2007 12:54 PM FARMER TREE FRUIT AND NUT CROPS) WBC 8.8 4.0 - 9.8 K/uL INTERFACE [...] K/uL INTERFACE SYSTEM 04/27/2007 12:5 4 PM FARMER TREE FRUIT AND NUT CROPS Inderjit Us MD HEMATOLOGY ORDERABLES Ed ited Performing Organization Address [facility] Phone Number INTERFACE SYSTEM Refer to clinic/hospital department * (ABNORMAL) BASIC METABOLIC PANEL (04/27/2007 12:54 PM FARMER TREE FRUIT AND NUT CROPS) GLUCOSE 97 65 - 99 mg/dL INTERFACE [...] and non- Americans is available on the [facility] Intranet at: [email or web address] Select: Lab Policies and Procedures Select: Reference Ranges - GFR 04/27/2007 12:5 4 PM FARMER TREE [employer]UIT AND NUT CROPS Inderjit Us MD CHEMISTRY ORDERABLES Musa álvaro Performing Organization Address [facility] de Phone Number INTERFACE SYSTEM Refer to clinic/hospital department documented in this encounter Visit Diagnoses Diagnosis Hernia of unspecified site of abdominal cavity without mention of obstruction or gangrene documented in this encounter
--- OUTSIDE RECORDS SUMMARY | 2025-03-17 18:20 | XMS_ITS | Encounter Summary ---
Author Organization [facility] Health Address [address] 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 Gender Identity Not on file Sexual Orientation Not on file Occupation Industry Job Start Date Job End Date Retired Not on file Not on file Not on file documented as of this encounter Plan of Treatment Not on file documented as of this encounter Visit Diagnoses Not on filedocumented in this encounter Care Teams Health Information Technologist Relationship Specialty Start Date End Date Martin Parker PA [facility] [place] [address] PCP - General Physician Physicist Acoustics 01/09/17 05/13/22 Jenny Alvarez MD [address] [place], [place] [id number] PCP - General Gastroenterology 05/14/22 Bernard Coughlin MD Neurological Surgery 12/25/11 Gunner Huber MD [address] [place] [address] Cardiology 05/31/22 documented as of this encounter
--- OUTSIDE RECORDS SUMMARY | 2025-03-17 18:20 | XMS_ITS | Clinical Summary ---
Author Organization [facility] Address [address] [place] [address] Care Team Providers Care Clinical Services Professional Name Role Phone Napoleon Wick MD Primary Care Provider [phone] Allergies No known active allergies Medications acetaminophen (TYLENOL) 500 mg tabletIndicat ions:Pain Take 1-2 tablets (500-1,000 mg total) by [...] mouth 3 (three) times a day Active HYDROcodone-a cetaminophen (NORCO) 10-325 mg per tablet Take 1 tablet by mouth every 4 (four) hours as needed Active mirtazapine (REMERON) 7.5 mg tablet mirtazapine 7.5 mg tablet TAKE 1 TABLET BY MOUTH EVERY DAY AT BEDTIME Active ergocalcifero l, vitamin D2, 50 mcg (2,000 unit) tablet Take 50,000 Units by mouth once a week 11/17/19 21 Active metoprolol XL (TOPROL-XL) 50 mg extended release tablet Take 1 tablet (50 mg total) by mouth daily 02/25/20 25 Active rOPINIRole (REQUIP) 1 mg tabletIndicat ions:Restless leg syndrome Take one tablet (1 mg) at bedtime for one week, then 2 tablets at bedtime. 60 tablet 3 03/03/20 Active cyanocobalami n (Vitamin B-12) 1,000 mcg tablet Take 1 tablet (1,000 mcg total) by mouth 2 (two) times a day Discontinued(Flakito butler Reported) Coreg 6.25 mg tablet Take 1 tablet (6.25 mg total) by mouth 2 (two) times a day with meals 05/26/19 025 Discontinued rOPINIRole (REQUIP) 0.25 mg tablet TAKE 2 TABLETS PO EVERY NIGHT AT BEDTIME IF PAIN NOT CONTROLLED 60 tablet 5 12/17/19 025 Discontinued(Re order) Active Problems Problem Noted Date Diagnosed Date Restless leg syndrome 08/05/2024 Numbness of lower extremity 04/30/2024 Abdominal pain 12/19/2009 Resolved Problems Problem Noted Date Diagnosed Date Resolved Date Polyneuropathy 04/30/2024 08/05/2024 Encounters Date Type Department Care Team Description 03/03/2025 11:15 AM CDT Office Visit [facility] [address] [place] [id number] Navid Ruano MD Restless leg syndrome (Primary Dx); Numbness of lower extremity from Last 3 Months Social History Tobacco Use Types Packs/Day Years Used Date Smoking Tobacco: Never Smokeless Tobacco: Never Tobacco Cessation:Counseling Given: Not Answered Comments Unknown Sex and Gender Information Value Date Recorded Sex Assigned at Not on file Legal Sex Female 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 Gender Identity Not on file Sexual Orientation Not on file Last Filed Vital Signs Vital Sign Reading Time Taken Comments Blood Pressure 115/57 03/03/2025 10:36 AM CDT Pulse 64 03/03/2025 10:36 AM CDT Temperature 36.4 C (97.5 F) 03/11/2022 10:18 AM CDT Respiratory Rate 18 03/11/2022 10:18 AM CDT Oxygen Saturation 100% 03/03/2025 10:36 AM CDT Inhaled Oxygen Concentration - - Weight 47.2 kg (104 lb) 03/03/2025 10:36 AM CDT Height 157.5 cm (5' 2) 03/03/2025 10:36 AM CDT Body Mass Index 19.02 03/03/2025 10:36 AM CDT Plan of Treatment Health Maintenance Due Date Last Done Comments Breast Cancer Screening-Mammogram 1955 Colon Cancer Screening-Colonoscopy 1955 Depression Screening 1955 Fall Risk Assessment 1955 Hepatitis C Screening 1955 Osteoporosis Screening-Bone Density Scan 1955 Hepatitis B Screening 09/03/1971 Zoster Vaccine (1 of 2) 09/03/2003 Well Visit 65+ 2018 Covid-19 Vaccine (2024- 6 season) 2025 01/04/2022, 04/23/2021, 08/07/2020, Additional history exists Influenza Vaccine (#1) 2025 , 03/26/2021, 03/28/2020, Additional history exists DTaP/Tdap/Td Vaccine (2 - Td or Tdap) 08/01/2031 07/31/2021 Pneumococcal vaccine 65+ Completed 022, 03/28/2020, 02/24/2015 Insurance MEDICARE IDPA [facility] MEDICARE ADVANTAGE [facility] MEDIC[facility] Address: [address] [address] [place] [address] MEDICARE IDPA IDPA Care Teams Clinical Services Professional Relationship Specialty Start Date End Date Napoleon Wick MD [address] [place] [address] PCP - General Family Medicine 03/03/25
--- OUTSIDE RECORDS SUMMARY | 2025-03-17 18:20 | XMS_ITS | Clinical Summary ---
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
--- OUTSIDE RECORDS SUMMARY | 2025-03-17 18:20 | XMS_ITS | Clinical Summary ---
Author Organization [facility] Address [address] [place] [address] Care Team Providers Care Color Strainer Name Role Phone Bernard Coughlin MD Unavailable Jenny Alvarez MD Primary Care Provider [phone] Gunner Huber MD Unavailable [phone] Source Comments [facility],non-owned Affiliates and Associated Physician Practices is amultiple site organization consisting of ambulatory clinics and hospital sitesin [place], [place], [place] and [place]. This disclosure is being madepursuant to the Care Everywhere program and may not contain all information available regarding this patient. Last updated 18.[facility] Allergies No known active allergies Medications [...] 03/19/20 17 Active vitamin D, ergocalciferol, (DRISDOL) 71265 UNITS capsuleIndications: Cervicalgia,Neural foraminal stenosis of cervical [...] (Flonase Allergy Relief) 50 MCG/ACT nasal spray [place] 1 spray every day by intranasal route. 11/15/19 23 Active multivitamin daily tablet Take 1 (one) tablet by mouth daily with food Active mirtazapine (Remeron) 15 MG tablet Take 1 (one) tablet by mouth at bedtime Active HYDROcodone-acetami nophen ([place]) 10-325 MG tabletIndications:S /P lumbar laminectomy Take [...] and heating? Not hard at all 01/12/2023 [facility] [place] [facility] Occup[facility] ional [facility] - Occupational Stress [...] place to sleep or slept in a fpc (including now)? No 01/12/2023 Comments No Sex and Gender Information Value Date Recorded Sex Assigned at Not on file Legal Sex Female 2:09 PM CORPORATE SECURITY MANAGER Gender Identity Not on file Sexual Orientation Not on file Occupation Industry Job Start Date Job End Date Retired Not on file Not on file Not on file Last Filed Vital Signs Vital Sign Reading Time Taken Comments Blood Pressure 130/80 04/13/2023 9:04 PM CORPORATE SECURITY MANAGER Pulse 70 04/13/2023 9:04 PM CORPORATE SECURITY MANAGER Temperature 37 C (98.6 F) 04/13/2023 9:04 PM CORPORATE SECURITY MANAGER Respiratory Rate 16 04/13/2023 9:04 PM CORPORATE SECURITY MANAGER Oxygen Saturation 99% 04/13/2023 9:04 PM CORPORATE SECURITY MANAGER Inhaled Oxygen Concentration - - Weight 59.9 kg (132 lb) 06/03/2023 12:00 PM CORPORATE SECURITY MANAGER Height 154.9 cm (5' 1) 06/03/2023 12:00 PM CORPORATE SECURITY MANAGER Body Mass Index 24.94 06/03/2023 12:00 PM CORPORATE SECURITY MANAGER Plan of Treatment Health Maintenance Due Date [...] this topic Medical Devices Implanted Type Area Top Lift And Automatic Window Repairer Device Identifier Shelf Expiration Date Model / Serial / Lot Spcr Spnl [id number] [facility] Crv Intbdy Implanted:Qty: 1 on 01/30/2017 by Fabian Campuzano MD at [facility] Spine Cervical [employer] [id number] / / Screw 3.6mm 16mm Spne Slfdrl Va Bone Implanted:Qty: 2 on 01/30/2017 by Fabian Campuzano MD at [facility] Spine Cervical [employer] 184.156 / / Sub Bngf Progenix Dbm Bvn Clgn Ptty 1ml Implanted:Qty: 1 on 01/30/2017 by Fabian Campuzano MD at [facility] Spine Cervical Spinal [employer] [id number] / / [id number] Sub Bngf Vitoss Btcp Clgn Void Dario Fm Pk Implanted:Qty: 1 on 06/20/2022 by Fabian Campuzano MD at [facility] N/A: Spine Cervical [employer] 11/07/2023 [id number] / / [id number] Description:c4-5 Spcr Spnl 16x9mm Coalition 7d Lrdtc 14mm Implanted:Qty: 1 on 06/20/2022 by Fabian Campuzano MD at [facility] N/A: Spine Cervical [employer] 384.309 / / Screw 3.6mm 16mm Slfdrl Va Spne Bone Implanted:Qty: 2 on 06/20/2022 by Fabian Campuzano MD at [facility] N/A: Spine Cervical [employer] 184.156 / [...] 6:02 PM 01/31/2017 2:44 PM Care Teams Color Strainer Relationship Specialty Start Date End Date Jenny Alvarez MD [address] [place], [place] [id number] PCP - General Gastroenterology 05/14/22 Bernard Coughlin MD Neurological Surgery 12/25/11 Gunner Huber MD [address] [place] [address] Cardiology 05/31/22
--- OUTSIDE RECORDS SUMMARY | 2025-03-17 18:20 | XMS_ITS | Encounter Summary ---
Author Organization [facility] Address [address] 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 Gender Identity Not on file Sexual Orientation Not on file Occupation Industry Job Start Date Job End Date Retired Not on file Not on file Not on file documented as of this encounter Plan of Treatment Not on file documented as of this encounter Visit Diagnoses Not on filedocumented in this encounter Care Teams Public Services Assistant Relationship Specialty Start Date End Date Martin Parker PA [facility] [place] [address] PCP - General Physician International Flight Attendant 01/09/17 05/13/22 Jenyn Alvarez MD [address] [place], [place] [id number] PCP - General Gastroenterology 05/14/22 Bernard Coughlin MD Neurological Surgery 12/25/11 Gunner Huber MD [address] [place] [address] Cardiology 05/31/22 documented as of this encounter
== END 2025-03-17 09:58 | disposition home or self-care (01) ==
LOC: ANHIMG 09:58
PROVIDERS: PCP Emergency Medicine; Visit Provider Emergency Medicine
DX: N26.1 Atrophy of kidney (terminal) (principal); R77.8 Other specified abnormalities of plasma proteins
CPT/HCPCS: 76700

== ENCOUNTER 2025-03-18 10:12 | Outpatient (CLI) | payer MEDICARE, MEDICAID, SELFPAY ==
--- OUTSIDE RECORDS SUMMARY | 2007-11-09 10:12 | XMS_ITS | Continuity of Care Document ---
Author Organization [facility] Address [address] [place] [address] [place] [address] Phone Care Team Providers Care Egg Factory Worker Name Role Phone Tulio Horton Unavailable Unavailable Procedures Procedure Date Visual Field Examination-Professional Ju Visual Field Examination-Technical Eye Exam, New Patient Optic Nerve Head Eval Advance Directives Directive Yes / No Effective Date File Name No Information Encounters Encounter Description Practice Location Reason(s) For Visit Diagnoses Date Provider Providers Copied on Encounter [facility], [address] [place] [address] [address], [place], [place], [id number], tel:[phone] [facility] No Information 0200 8 Eugeneishnasrosalie Tulio. [address] [place] [address], [facility], [place]. tel:[phone] Referring Provider: Tulio strickland, [address] [place] [address], [place], [place], [facility]. tel:[phone] [facility], [address] [place] [address] [address], [place], [place], [id number], tel:[phone] [facility] No Information 3200 8 Krishnasamy Tulio. [address] [place] [address], [facility], [place]. tel:[phone] Referring Provider: Tulio strickland, [address] [place] [address], [place], [place], [facility]. tel:[phone] [facility], [address], [place], [place], [id number], [place] tel:[phone] [facility] [place] No Information 9200 8 Clifford Antunez. [address] [facility] [place] [address], [place], [address], [place]. tel:[phone] Family History Family Member Type Diagnosis Age At Onset No Information Payers Payer name Insurance type Covered alliance party ID Authoriza tion(s) Medicare [facility] [id number] Medicaid [facility] [id number] Social History Type Description Quantity Date Captured [...]
[2025-03-18 10:53] LABS: Hematocrit 36.4 % (37.0-47.0); Hemoglobin 11.7 g/dL (12.0-15.0)
--- OUTSIDE RECORDS SUMMARY | 2025-03-18 11:03 | XMS_ITS | Clinical Summary ---
Author Organization [facility] Address [address] [place] [address] Care Team Providers Care Timber Trimmer Name Role Phone Napoleon Wick MD Primary Care Provider [phone] Allergies No known active allergies Medications acetaminophen [...] Description 03/03/2025 11:15 AM CDT Office Visit [facility] [address] [place] [phone] Navid Ruano MD Restless leg syndrome (Primary Dx); Numbness of lower extremity from Last 3 Months Social History Tobacco Use Types Packs/Day Years Used Date Smoking Tobacco: Never Smokeless Tobacco: Never Tobacco Cessation:Counseling Given: Not Answered Comments Unknown Sex and Gender Information Value Date Recorded Sex Assigned at Not on file Legal Sex Female 7:39 PM TATTOOER Gender Identity Not on file Sexual Orientation [...] Completed 022, 03/28/2020, 02/24/2015 Insurance MEDICARE IDPA [facility] MEDICARE ADVANTAGE MEDICARE [facility] Address: [address] [address] [place] [address] IDPA IDPA Care Teams Timber Trimmer Relationship Specialty Start Date End Date Napoleon Wick MD [address] [place] [address] PCP - General Family Medicine 03/03/25
--- OUTSIDE RECORDS SUMMARY | 2025-03-18 11:03 | XMS_ITS | Encounter Summary ---
Author Organization [facility] Address [address] [place] [address] Care Team Providers Care Consumer Affairs Director Name Role Phone Unavailable Primary Care Provider Unavailabl e Encounter Details Date Type Department Care Team (Late st Contact Info) Description 04/27/2007 Outpatient Historical [facility] INPATIENT IN BED Inderjit Us MD [address] [place] [address] Hernia Social History Tobacco Use Types Packs/Day Years Used Date Smoking Tobacco: Never Assessed Comments Unknown Sex and Gender Information Value Date Recorded Sex Assigned at Not on file Legal Sex Female 5:29 AM TRASHMAN Gender Identity Not on file Sexual Orientation Not on file documented as of this encounter Plan of Treatment Not on file documented as of this encounter Procedures Procedure Name Priority Date/Time Associated Diagnosis Comments CBC WITH DIFFERENTIAL Routine 05/03/2007 5:30 AM TRASHMAN CBC WITH DIFFERENTIAL Routine 05/03/2007 5:30 AM TRASHMAN CBC WITH DIFFERENTIAL Routine 05/03/2007 5:30 AM TRASHMAN CBC WITH DIFFERENTIAL Routine 05/02/2007 7:40 AM TRASHMAN CBC WITH DIFFERENTIAL Routine 05/02/2007 7:40 AM TRASHMAN CBC WITH DIFFERENTIAL Routine 05/02/2007 5:15 AM TRASHMAN CBC WITH DIFFERENTIAL Routine 05/02/2007 5:15 AM TRASHMAN CBC WITH DIFFERENTIAL Routine 05/01/2007 6:30 AM TRASHMAN CBC WITH DIFFERENTIAL Routine 05/01/2007 6:30 AM TRASHMAN BASIC METABOLIC PANEL Routine 05/01/2007 6:30 AM TRASHMAN CBC WITH DIFFERENTIAL Routine 04/27/2007 12:54 PM TRASHMAN CBC WITH DIFFERENTIAL Routine 04/27/2007 12:54 PM TRASHMAN BASIC METABOLIC PANEL Routine 04/27/2007 12:54 PM TRASHMAN documented in this encounter Results * (ABNORMAL) CBC WITH DIFFERENTIAL (05/03/2007 5:30 AM TRASHMAN) Pathologist [facility] NEUTROPHIL ABSOLUTE 3.62 1.90 - 7.00 K/uL [...] Normal INTER FACE SYSTEM 05/03/2007 5:30 AM TRASHMAN Matty Hill MD HEMATOLOGY ORDERABLES Edit ed Performing Organization Address [facility] Phone Number INTERFACE SYSTEM Refer to clinic/hospital department * CBC WITH DIFFERENTIAL (05/03/2007 5:30 AM TRASHMAN) Pathologist [facility] NRBC 0 <=0 /100 WBC INTERFACE SYSTEM 05/03/2007 5:30 AM TRASHMAN Matty Hill MD HEMATOLOGY ORDERABLES Edit ed Performing Organization Address [facility] de Phone Number INTERFACE SYSTEM Refer to clinic/hospital department * (ABNORMAL) CBC WITH DIFFERENTIAL (05/03/2007 5:30 AM TRASHMAN) WBC 5.4 4.0 - 9.8 K/uL INTERFACE [...] 12.4 fL INTERFACE SYSTEM 05/03/2007 5:30 AM TRASHMAN Matty Hill MD HEMATOLOGY ORDERABLES Edit ed Performing Organization Address [facility] Phone Number INTERFACE SYSTEM Refer to clinic/hospital department * (ABNORMAL) CBC WITH DIFFERENTIAL (05/02/2007 7:40 AM TRASHMAN) NEUTROPHILS 73(H) 45 - 70 % INTERFAC [...] 0.20 K/uL INTERFACE SYSTEM 05/02/2007 7:40 AM TRASHMAN Matty Hill MD HEMATOLOGY ORDERABLES Edit ed Performing Organization Address [facility] Phone Number INTERFACE SYSTEM Refer to clinic/hospital department * (ABNORMAL) CBC WITH DIFFERENTIAL (05/02/2007 7:40 AM TRASHMAN) WBC 5.9 4.0 - 9.8 K/uL INTERFACE [...] 12.4 fL INTERFACE SYSTEM 05/02/2007 7:40 AM TRASHMAN Matty Hill MD HEMATOLOGY ORDERABLES Edit ed Performing Organization Address [facility] Phone Number INTERFACE SYSTEM Refer to clinic/hospital department * (ABNORMAL) CBC WITH DIFFERENTIAL (05/02/2007 5:15 AM TRASHMAN) NEUTROPHILS 74(H) 45 - 70 % INTERFAC [...] 0.20 K/uL INTERFACE SYSTEM 05/02/2007 5:15 AM TRASHMAN Inderjit Us MD HEMATOLOGY ORDERABLES Ed ited Performing Organization Address [facility] Phone Number INTERFACE SYSTEM Refer to clinic/hospital department * (ABNORMAL) CBC WITH DIFFERENTIAL (05/02/2007 5:15 AM TRASHMAN) WBC 5.5 4.0 - 9.8 K/uL INTERFACE [...] 12.4 fL INTERFACE SYSTEM 05/02/2007 5:15 AM TRASHMAN Inderjit Us MD HEMATOLOGY ORDERABLES Ed ited Performing Organization Address [facility] Phone Number INTERFACE SYSTEM Refer to clinic/hospital department * (ABNORMAL) CBC WITH DIFFERENTIAL (05/01/2007 6:30 AM TRASHMAN) [facility] NEUTROPHILS 81(H) 45 - 70 % INTERFAC [...] 0.20 K/uL INTERFACE SYSTEM 05/01/2007 6:30 AM TRASHMAN Inderjit Us MD HEMATOLOGY ORDERABLES Ed ited Performing Organization Address [facility] Phone Number INTERFACE SYSTEM Refer to clinic/hospital department * (ABNORMAL) CBC WITH DIFFERENTIAL (05/01/2007 6:30 AM TRASHMAN) WBC 6.8 4.0 - 9.8 K/uL INTERFACE [...] 12.4 fL INTERFACE SYSTEM 05/01/2007 6:30 AM TRASHMAN us Inderjit Us MD HEMATOLOGY ORDERABLES Ed ited INTERFACE SYSTEM Refer to clinic/hospital department * (ABNORMAL) BASIC METABOLIC PANEL (05/01/2007 6:30 AM TRASHMAN) GLUCOSE 113(H) 65 - 99 mg/dL INTERFACE [...] the [facility] Intranet at: [email or web address] Select: Lab Policies and Procedures Select: Reference Ranges - GFR 05/01/2007 6:30 AM TRASHMAN Inderjit Us MD CHEMISTRY ORDERABLES Musa álvaro Performing Organization Address City/[facility]/ZIP Co de Phone Number INTERFACE SYSTEM Refer to clinic/hospital department * CBC WITH DIFFERENTIAL (04/27/2007 12:54 PM TRASHMAN) NEUTROPHIL ABSOLUTE 4.58 1.90 - 7.00 K/uL [...] Rev. INTERFACE SYSTEM 04/27/2007 12:5 4 PM TRASHMAN Inderjit Us MD HEMATOLOGY ORDERABLES Ed ited Performing Organization Address [facility] de Phone Number INTERFACE SYSTEM Refer to clinic/hospital department * CBC WITH DIFFERENTIAL (04/27/2007 12:54 PM TRASHMAN) WBC 8.8 4.0 - 9.8 K/uL INTERFACE [...] K/uL INTERFACE SYSTEM 04/27/2007 12:5 4 PM TRASHMAN Inderjit Us MD HEMATOLOGY ORDERABLES Ed ited Performing Organization Address [facility] Phone Number INTERFACE SYSTEM Refer to clinic/hospital department * (ABNORMAL) BASIC METABOLIC PANEL (04/27/2007 12:54 PM TRASHMAN) GLUCOSE 97 65 - 99 mg/dL INTERFACE [...] the [facility] Intranet at: [email or web address] Select: Lab Policies and Procedures Select: Reference Ranges - GFR 04/27/2007 12:5 4 PM TRASHMAN Inderjit Us MD CHEMISTRY ORDERABLES Musa álvaro Performing Organization Address [facility] de Phone Number INTERFACE SYSTEM Refer to clinic/hospital department documented in this encounter Visit Diagnoses Diagnosis Hernia of unspecified site of abdominal cavity without mention of obstruction or gangrene documented in this encounter
--- OUTSIDE RECORDS SUMMARY | 2025-03-18 11:03 | XMS_ITS | Clinical Summary ---
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
--- OUTSIDE RECORDS SUMMARY | 2025-03-18 11:03 | XMS_ITS | Clinical Summary ---
Author Organization [facility] Address [address] [place] [address] Care Team Providers Care Design Assembler Name Role Phone Bernard Coughlin MD Unavailable [phone] Jenny Alvarez MD Primary Care Provider [phone] Gunner Huber MD Unavailable [phone] Source Comments [facility],non-owned Affiliates and Associated Physician Practices is amultiple site organization consisting of ambulatory clinics and hospital sitesin [place], [place], [place] and [place]. This disclosure is being madepursuant to the Care Everywhere program and may not contain all information available regarding this patient. Last updated 18.[facility] Allergies No known active allergies Medications [...] 03/19/20 17 Active vitamin D, ergocalciferol, (DRISDOL) 73155 UNITS capsuleIndications: Cervicalgia,Neural foraminal stenosis of cervical [...] (Flonase Allergy Relief) 50 MCG/ACT nasal spray [place] 1 spray every day by intranasal route. 11/15/19 23 Active multivitamin daily tablet Take 1 (one) tablet by mouth daily with food Active mirtazapine (Remeron) 15 MG tablet Take 1 (one) tablet by mouth at bedtime Active HYDROcodone-acetami nophen ([place]) 10-325 MG tabletIndications:S /P lumbar laminectomy Take [...] and heating? Not hard at all 01/12/2023 [facility] [place] [facility] Occup[facility] - Occupational Stress [...] place to sleep or slept in a chcf (including now)? No 01/12/2023 Comments No Sex and Gender Information Value Date Recorded Sex Assigned at Not on file Legal Sex Female 2:09 PM GUITAR PLAYER Gender Identity Not on file Sexual Orientation Not on file Occupation Industry Job Start Date Job End Date Retired Not on file Not on file Not on file Last Filed Vital Signs Vital Sign Reading Time Taken Comments Blood Pressure 130/80 04/13/2023 9:04 PM GUITAR PLAYER Pulse 70 04/13/2023 9:04 PM GUITAR PLAYER Temperature 37 C (98.6 F) 04/13/2023 9:04 PM GUITAR PLAYER Respiratory Rate 16 04/13/2023 9:04 PM GUITAR PLAYER Oxygen Saturation 99% 04/13/2023 9:04 PM GUITAR PLAYER Inhaled Oxygen Concentration - - Weight 59.9 kg (132 lb) 06/03/2023 12:00 PM GUITAR PLAYER Height 154.9 cm (5' 1) 06/03/2023 12:00 PM GUITAR PLAYER Body Mass Index 24.94 06/03/2023 12:00 PM GUITAR PLAYER Plan of Treatment Health Maintenance Due Date [...] this topic Medical Devices Implanted Type Area Assistant Track Coach Device Identifier Shelf Expiration Date Model / Serial / Lot Spcr Spnl [id number] [facility] Crv Intbdy Implanted:Qty: 1 on 01/30/2017 by Fabian Campuzano MD at [facility] Spine Cervical [employer] 384.308 / / Screw 3.6mm 16mm Spne Slfdrl Va Bone Implanted:Qty: 2 on 01/30/2017 by Fabian Campuzano MD at [facility] Spine Cervical [employer] 184.156 / / Sub Bngf Pro[employer] Dbm Bvn Clgn Ptty 1ml Implanted:Qty: 1 on 01/30/2017 by Fabian Campuzano MD at [facility] Spine Cervical Sp[employer] [id number] / / [id number] Sub Bngf Vitoss Btcp Clgn Void Dario Fm Pk Implanted:Qty: 1 on 06/20/2022 by Fabian Campuzano MD at [facility] N/A: Spine Cervical [employer] 11/07/2023 [id number] / / [id number] Description:c4-5 Spcr Spnl 16x9mm [employer] 7d Lrdtc 14mm Implanted:Qty: 1 on 06/20/2022 by Fabian Campuzano MD at [facility] N/A: Spine Cervical [employer] 384.309 / / Screw 3.6mm 16mm Slfdrl Va Spne Bone Implanted:Qty: 2 on 06/20/2022 by Fabian Campuzano MD at [facility] N/A: Spine Cervical [employer] 184.156 / [...] 6:02 PM 01/31/2017 2:44 PM Care Teams Design Assembler Relationship Specialty Start Date End Date Jenny Alvarez MD [address] [place], [place] [phone] PCP - General Gastroenterology 05/14/22 Bernard Coughlin MD Neurological Surgery 12/25/11 Gunner Huber MD [address] [place] [address] Cardiology 05/31/22
--- OUTSIDE RECORDS SUMMARY | 2025-03-18 11:03 | XMS_ITS | Encounter Summary ---
Author Organization [facility] Address [address] 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 Gender Identity Not on file Sexual Orientation Not on file Occupation Industry Job Start Date Job End Date Retired Not on file Not on file Not on file documented as of this encounter Plan of Treatment Not on file documented as of this encounter Visit Diagnoses Not on filedocumented in this encounter Care Teams Supervisor Wall Mirror Department Relationship Specialty Start Date End Date Martin Parker PA [facility] [place] [address] PCP - General Physician Asphalt Layer 01/09/17 05/13/22 Jenny Alvarez MD [address] [place], [place] [id number] PCP - General Gastroenterology 05/14/22 Bernard Coughlin MD Neurological Surgery 12/25/11 Gunner Huber MD [address] [place] [address] Cardiology 05/31/22 documented as of this encounter
--- OUTSIDE RECORDS SUMMARY | 2025-03-18 11:03 | XMS_ITS | Encounter Summary ---
Author Organization [facility] Address [address] 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 Gender Identity Not on file Sexual Orientation Not on file Occupation Industry Job Start Date Job End Date Retired Not on file Not on file Not on file documented as of this encounter Plan of Treatment Not on file documented as of this encounter Visit Diagnoses Not on filedocumented in this encounter Care Teams Screen Roller Relationship Specialty Start Date End Date Martin Parker PA [facility] [place] [place] [address] PCP - General Physician Outpatient Therapist 01/09/17 05/13/22 Jenny Alvarez MD [address] [place], [place] [phone] PCP - General Gastroenterology 05/14/22 Bernard Coughlin MD Neurological Surgery 12/25/11 Gunner Huber MD [address] [place] [address] Cardiology 05/31/22 documented as of this encounter
== END 2025-03-18 10:13 | disposition home or self-care (01) ==
LOC: ANHSURGERY 10:21
PROVIDERS: Anesthesiology; PCP Emergency Medicine; Visit Provider Surgery
DX: K43.2 Incisional hernia without obstruction or gangrene (principal); D50.9 Iron deficiency anemia, unspecified; Z01.818 Encounter for other preprocedural examination
CPT/HCPCS: 36415; 85014; 85018; 86850; 86900; 86901